=== PATIENT | male | born 1935 | race Caucasian/White ===

== ENCOUNTER 2016-12-01 09:55 | Observation (INO) | payer OTHER ==
--- NOTE | 2016-12-01 00:24 | SOAPPROG ---
SOAP Progress Note Assessment/Plan: Assessment: Plan: H&P Dict. # [id number] ICD10 Worksheet Patient Problems: Problems Problem Status Onset Bacteremia due to Gram-negative bacteria Acute Septic shock Acute Severe sepsis without septic shock Acute UTI (urinary tract infection) Acute
--- NOTE | 2016-12-01 00:47 | GHP ---
[f rep st] PREOP HISTORY AND PHYSICAL DATE OF ADMISSION: 12/01/2016 CHIEF COMPLAINT: Large bladder tumor. HISTORY: This is an 81-year-old gentleman, who has had recent gross hematuria. Evaluation included cystoscopy and CT urogram. Cystoscopy revealed a sizable bladder tumor measuring approximately 5 c m in diameter along the left side of the trigone and was obscuring ureteral orifice visualization on that side. CT urogram recently performed revealed [id number] left hydronephrosis and hydrour eter down to the ureterovesical junction, where there appeared to be a prominent intraluminal bladde r mass. Unable to assess the lumen of the lower two thirds in the left ureter due to lack of contra st opacification. PAST MEDICAL HISTORY: Notable for atrial fibrillation, cerebrovascular accident in March 2015, d epression, type 1 diabetes, gastric reflux, glaucoma, gout, high blood pressure, arthritis, peripher al neuropathy, history of polymyalgia rheumatica, rheumatoid arthritis. PAST SURGICAL HISTORY: Includes appendectomy, 3-vessel coronary bypass grafting in June 1997, r ight epididymectomy in 1967, cholecystectomy in 1962, double inguinal hernia repair in 1935, right k nee replacement in 2009, C5-6 and the C6-7 fusion in January 2001, L3 through L5 surgery in August 2008. ADMISSION MEDICATIONS: Include tamsulosin 0.4 mg daily, simvastatin 20 mg daily, Tylenol 325 mg 2 t ablets at bedtime, ranitidine 150 mg daily, metoprolol 25 mg daily, methotrexate 2.5 mg once weekly, Lantus subcutaneous insulin, Humalog insulin, Flonase once daily, baby aspirin. MEDICAL ALLERGIES: None known. FAMILY HISTORY: Noncontributory. SOCIAL HISTORY: The patient is and lives in the [facility]. He denies use of tobacco. No alcohol products. PHYSICAL EXAMINATION: GENERAL: Elderly white male, in no acute distress. VITAL SIGNS: Refer to a dmission nursing homes. Height 5 feet 9 inches, weight 213 pounds, BMI 31.4. HEENT: Nonfocal. HE ART: Regular rate. CHEST: Unlabored respiratory pattern. GENITALIA: Normal phallus and scrotal structures. IMPRESSION: Large bladder neoplasm with moderate left hydronephrosis and hydroureter. PLAN: The patient will undergo intraoperative transurethral bladder tumor resection with possible l eft ureteroscopy and ureteral stent placement on 12/01/2016. /[id number]/MODL
[2016-12-01] MEDS ORDERED: levOFLOXACIN 500 MG/DEXTROSE 100 ML IV ONE (10:18)
[2016-12-01] MEDS ORDERED: LR 1,000 ML IV ONE (10:19)
[2016-12-01] MEDS ORDERED: LIDOCAINE 1% 2 ML INJ ID PRN (10:19)
--- NOTE | 2016-12-01 10:36 | POSTOPPROG ---
Post Op Note Date of Operation: 12/01/16 Surgeon: Lynn Lema (# [id number]) Anesthesia: GET(General Endotracheal) Pre-op Diagnosis: Large bladder tumor, left hydroureteronephrosis Post-op Diagnosis: Large bladder tumor, left hydroureteronephrosis, distal left ureteral obstr Procedure: TURBT, left RGP & ureteral stent placement Findings: See op note Inf/Abcess present in the surg proc area at time of surgery?: No EBL: Minimal Complications: None Drains: Other (6 Fr. x 24 cm left ureteral stent) Specimen(s): Bladder tumor Text Box - Additional Text Additional Text: He will be admitted overnight for CBI
[2016-12-01] MEDS ORDERED: CITRIC ACID/SODIUM CITRATE 30 ML UDCUP PO ONE (11:26)
--- NOTE | 2016-12-01 11:57 | PDHPUP ---
History & Physical Update H&P update statement: This history and physical update is based on an assessment of the patient which was completed after admission or registration (within 24 hours), but prior to the surgery/procedure. H&P update: no change in patient's condition since H&P completed
[2016-12-01] MEDS ORDERED: LIDOCAINE 2% JELLY 20 ML (UROJECT) ONE (12:07)
[2016-12-01] MEDS ORDERED: IOPAMIDOL (ISOVUE-M 300) 15 ML VIAL ONE (12:07)
[2016-12-01] MEDS ORDERED: fentaNYL 100 MCG/2 ML INJ ONE (12:14)
[2016-12-01] MEDS ORDERED: MIDAZOLAM 2 MG/2 ML VIAL ONE (12:15)
[2016-12-01] MEDS ORDERED: SUCCINYLCHOLINE CHLORIDE*ANESTHESIA ONLY*200 MG/10 ML SYR IVP ONE (12:40)
[2016-12-01] MEDS ORDERED: ROCURONIUM 50 MG/5 ML VIAL ONE (12:40)
[2016-12-01] MEDS ORDERED: LABETALOL HCL 50 MG/10 ML SYR IVP PRN (12:57)
[2016-12-01] MEDS ORDERED: MEPERIDINE 25 MG/ML SYR IVP PRN (12:57)
[2016-12-01] MEDS ORDERED: HYDROmorphONE/DILAUDID 1 MG/ML SYR IVP PRN (12:57)
[2016-12-01] MEDS ORDERED: METOCLOPRAMIDE 10 MG/2 ML VIAL IVP PRN (12:57)
[2016-12-01] MEDS ORDERED: fentaNYL 100 MCG/2 ML INJ IVP PRN (12:57)
[2016-12-01] MEDS ORDERED: NALOXONE HCL 0.4 MG/ML INJ IVP PRN (12:57)
[2016-12-01] MEDS ORDERED: ONDANSETRON 4 MG/2 ML VIAL IVP PRN ×2 (12:57→14:10)
--- NOTE | 2016-12-01 13:09 | PDANEPAE ---
ANE Past Medical History - Cardiovascular History Hx Hypertension: Yes Hx Arrhythmias: Yes Hx Chest Pain: No Hx Coronary Artery / Peripheral Vascular Disease: Yes Hx CHF / Valvular Disease: No Hx Palpitations: No Cardiovascular History Comment: INTERMITTENT ATRIAL FIBRILLATION. WORSE WITH STRESS. STENT 2013 - Pulmonary History Hx COPD: No Hx Asthma/Reactive Airway Disease: No Hx Recent Upper Respiratory Infection: No Hx Oxygen in Use at Home: No Hx Sleep Apnea: No Sleep Apnea Screening Result - Last Documented: Positive - Neurologic History Hx Cerebrovascular Accident: Yes Hx Seizures: No Hx Dementia: No Neurologic History Comment: TIA 2014 - Endocrine History Hx Diabetes: Yes Endocrine History Comment: IDDM - Renal History Hx Renal Disorders: Yes Renal History Comment: HX UTI'S. RENAL CYSTS. SEPSIS/BACTERMIA/HEMATURIA 2016 - Liver History Hx Hepatic Disorders: No Hepatic History Comment: CASPER - Neurological & Psychiatric Hx Hx Neurological and Psychiatric Disorders: No - Cancer History Hx Cancer: Yes Cancer History Comment: SKIN - Congenital Disorder History Hx Congenital Disorders: No - GI History GERD: mild Hx Gastrointestinal Disorders: Yes Gastrointestinal History Comment: GERD. HX OF COLON POLYPS - Other Health History Other Health History: RHEUMATOID ARTHRITIS. POLIO DURING CHILDHOOD NO RESIDUAL EFFECTS - Chronic Pain History Chronic Pain: No - Surgical History Prior Surgeries: BILATERAL CATARACT/GLAUCONMA 2005. MOHS PROCEDURE NASAL. RT TOTAL KNEE. LUMBAR LAMINECTOMY X2. CERVICAL LAMINECTOMY. CABG X3 1997. RT ANKLE X2. REMVL RT EPIDIDYMIS /INFECTION. CASPER. T&A. VINAY HERNIA 193 ANE Review of Systems - Exercise capacity METS (RN): 4 METS ANE Patient History - Allergies Allergies/Adverse Reactions: No Known Allergies Allergy (Unverified 11/15/16 10:19) - Home Medications Home Medications: Ascorbic Acid [Vitamin C 500 mg (*)] 500 mg PO DAILY@1800 10/17/13 [Last Taken 11/30/16] Folic Acid [Folic Acid 1 MG (*)] 1 tab PO DAILY@1800 10/17/13 [Last Taken ] Insulin Glargine [Lantus 100 UNITS/ML (*)] 15 units SC HS 10/17/13 [Last Taken 11/30/16] Methotrexate Sodium [Methotrexate] 15 mg PO WE 10/17/13 [Last Taken 11/30/16] Metoprolol Tartrate [Lopressor 25 mg (*)] 12.5 mg PO BID 10/17/13 [Last Taken ] Tamsulosin HCl [Flomax 0.4 MG (*)] 0.4 mg PO DAILY 10/17/13 [Last Taken 10/16/13 ] Acetaminophen [Tylenol ES 500 mg (*)] 500 mg PO DAILY PRN 11/15/16 [Last Taken Unknown] Insulin Lispro [Humalog] 3 - 4 unit SQ TIDMEAL 11/15/16 [Last Taken 12/01/16] Ranitidine HCl [Zantac] 150 mg PO BIDMEAL 11/15/16 [Last Taken 11/30/16] Simvastatin [Zocor] 20 mg PO HS 11/15/16 [Last Taken Unknown] ASPIRIN 81 mg PO DAILY 12/01/16 [Last Taken 11/30/16] Xarelto 20 mg DAILY 12/01/16 [Last Taken 11/07/16] - NPO status NPO Since - Liquids (Date): 12/01/16 NPO Since - Liquids (Time): 21:00 NPO Since - Solids (Date): 12/01/16 NPO Since - Solids (Time): 21:00 - Smoking Hx Smoking Status: Never smoked ANE Labs/Vital Signs - Labs - CBC HCT: 44.5 Platelet Count: 163 - Labs - BMP Creatinine: 1.2 - Vital Signs Blood Pressure: 156/67 Heart Rate: 78 Respiratory Rate: 14 O2 Sat (%): 93 Height: 173.99 cm Weight: 96.615 kg ANE Physical Exam - Airway Neck exam: decreased ROM, spinal fusion Mallampati Score: Class 2 - Pulmonary Pulmonary: no rales or rhonchi, clear to auscultation - Cardiovascular Cardiovascular: regular rate and rhythym - ASA Status ASA Status: III
[2016-12-01] MEDS ORDERED: METHYLENE BLUE 0.5% 50 MG/10 ML AMP ONE (13:14)
[2016-12-01] MEDS ORDERED: ONDANSETRON 4 MG/2 ML VIAL ONE (13:16)
[2016-12-01] MEDS ORDERED: NEOSTIGMINE METHYLSULFATE 5 MG/5 ML SYR ONE (13:19)
[2016-12-01] MEDS ORDERED: GLYCOPYRROLATE 0.2 MG/1 ML VIAL ONE ×2 (13:20)
--- NOTE | 2016-12-01 13:59 | POSTANESTH ---
Post Anesthetic Evaluation Respiratory Status: Normal, Stable Level of Consciousness/Mental Status: Can Participate in Eval, Mildly Sleepy, Arousable Pain Control: Adequate, Prn Tx Ordered Nausea/Vomiting Control: Adequate, Prn Tx Ordered Complications Possibly Related to Anesthesia: None Noted
[2016-12-01] MEDS ORDERED: PROMETHAZINE HCL 25 MG/ML INJ IVP PRN (14:10)
[2016-12-01] MEDS ORDERED: LIDOCAINE 2% JELLY 5 ML TUBE TP PRN (14:10)
--- NOTE | 2016-12-01 14:59 | GOP ---
[f rep st] OPERATIVE REPORT DATE OF OPERATION: 12/01/2016 SURGEON: Lynn Lema MD ANESTHESIA: General endotracheal. PREOPERATIVE DIAGNOSIS: 1. Large bladder tumor, greater than 5 cm. 2. Left hydroureteronephrosis. POSTOPERATIVE DIAGNOSIS: 1. Large bladder tumor, greater than 5 cm. 2. Left hydroureteronephrosis. 3. Distal left ureteral obstruction. PROCEDURES PERFORMED: 1. Transurethral resection of large bladder tumor. 2. Left retrograde pyelography and ureteral stent placement (6-Bangladeshi by 24 cm) . FINDINGS: 1. Large left trigonal and lateral wall bladder tumor that had both papillary and sessile components to it. 2. Left ureteral orifice and distal ureter appeared to be obstructed as result of the tumor; ureteral stent inserted without complication. SPECIMENS: Bladder tumor. ESTIMATED BLOOD LOSS: Minimal. INDICATIONS: This gentleman was recently found to have a large bladder tumor that appeared to be possibly obstructing the left ureteral orifice. He presents for operative management at this time. The indications for the procedures, as well as potential risks and complications, have been discussed with the patient preoperatively. He appeared to understand, his questions were answered, and he wished to proceed. Written informed surgical consent was thereafter obtained. DESCRIPTION OF PROCEDURE: The patient was brought to the operating room and administered general endotracheal anesthesia. He was carefully placed in the dorsal lithotomy position on the cystoscopic table. The genital area was sterilely prepped with Betadine scrub and paint, then draped in usual sterile fashion. Cystoscopy was performed with the 30-degree and 70-degree lenses through a 25-Bangladeshi sheath. Anterior urethra revealed no abnormalities. Posterior urethra revealed mild BPH. Examination of bladder revealed a heavily trabeculated bladder in general. There was a sizable tumor along the left trigone and extending onto the left lateral wall which included a sessile component that involved the left side of the trigone, as well as a papillary component extending lateral to that. The right ureteral orifice was normal in regard to shape and position along the trigone. I then inserted the 24-Bangladeshi [employer] resectoscope with a standard resecting loop. Using normal saline, I resected the tumor to completion. Muscularis propria was obtained in the sample grossly. All the tumor fragments were evacuated from the bladder through the resectoscope as well as utilizing an [employer] evacuator. A button electrode was then used to fulgurate the surface of the resected bladder for hemostasis as well as for local tumor control purposes. I then carefully inspected the region of the left trigone and was ultimately able to identify an area that appeared to be suggestive for the left ureter. I used a 5-Bangladeshi open-ended ureteral catheter and a 0.035-inch hydrophilic guidewire through the cystoscope and was able to intubate this opening, that was confirmed to be the left ureter. I injected contrast to perform retrograde pyelography which revealed a [id number] distal hydroureter. The remainder of the ureter and the renal collecting system were normal. I then passed a 0.035-inch hydrophilic guidewire up the left ureter until it was seen within the renal collecting system fluoroscopically. A 6-Bangladeshi by 24 cm hydrophilic ureteral stent was advanced over the guidewire until it was properly positioned as seen fluoroscopically in the kidney and cystoscopically in the bladder. The bladder was then drained of all return which was clear. At the conclusion of procedure, all abnormal bladder tissue had been resected and evacuated from the bladder, the bladder was hemostatic, and no gross perforation of the bladder wall had ensued as a result of the operative process. The instruments were removed, and a 20-Bangladeshi 3-way Cantor catheter inserted. Continuous irrigation was started, and the catheter irrigated manually at the end of the case without difficulty. The return was clear. The patient's catheter was connected to bag drainage. He was awakened, extubated, transferred to his bed, and then taken to the recovery room. He tolerated the procedure well overall. COMPLICATIONS: None. DISPOSITION: He was transferred to the recovery room in stable condition and will be admitted overnight for continuous bladder irrigation. /[id number]/MODL MTDD
[2016-12-01] MEDS ORDERED: D50W 25 GM/50 ML SYR IVP PRN (16:03)
[2016-12-01] MEDS ORDERED: PARAMETERS MISC PRN (16:03)
[2016-12-01] MEDS: FAMOTIDINE 20 MG TAB PO SCH (16:38)
[2016-12-01] MEDS: INSULIN LISPRO 100 UNIT/ML SC SCH (17:24)
[2016-12-01] MEDS ORDERED: NON-FORMULARY NEW DRUG (Insulin Lispro [Humalog] 0 UNIT) SQ SCH (18:00)
[2016-12-01] MEDS ORDERED: NON-FORMULARY NEW DRUG (Ranitidine Hcl [Zantac] 150 MG) PO SCH (18:00)
[2016-12-01] MEDS: METOPROLOL TARTRATE 25 MG TAB PO SCH (19:35)
[2016-12-01] MEDS: HYDROCODONE/APAP 5/325 TAB PO PRN ×2 (19:39→21:07)
[2016-12-01] MEDS ORDERED: ATORVASTATIN CALCIUM 10 MG TAB PO SCH (21:00)
[2016-12-01] MEDS ORDERED: NON-FORMULARY NEW DRUG (Simvastatin [Zocor] 20 MG) PO SCH (21:00)
[2016-12-01] MEDS ORDERED: INSULIN GLARGINE 100 UNITS/ML SYRINGE SC SCH (21:00)
[2016-12-01] MEDS: OPIUM/BELLADONNA ALKALO SUPP PR PRN (21:13)
[2016-12-01] MEDS: HYDROmorphONE/DILAUDID 1 MG/ML SYR IVP PRN (21:50)
[2016-12-02] MEDS: HYDROmorphONE/DILAUDID 1 MG/ML SYR IVP PRN ×2 (01:24→04:44)
[2016-12-02] MEDS: OPIUM/BELLADONNA ALKALO SUPP PR PRN ×2 (04:44→11:23)
[2016-12-02] MEDS: FAMOTIDINE 20 MG TAB PO SCH (08:54)
[2016-12-02] MEDS: METOPROLOL TARTRATE 25 MG TAB PO SCH (08:54)
[2016-12-02] MEDS ORDERED: TAMSULOSIN HCL 0.4 MG CAP PO SCH (09:00)
[2016-12-02] MEDS: INSULIN LISPRO 100 UNIT/ML SC SCH ×2 (09:03→12:49)
[2016-12-02] MEDS: HYDROCODONE/APAP 5/325 TAB PO PRN ×2 (11:22→17:46)
--- NOTE | 2016-12-02 15:45 | SOAPPROG ---
SOAP Progress Note Assessment/Plan: Assessment: POD 1 s/p TURBT - doing well. Plan: Discharge w/ Cantor. FU next Mon. for Cantor removal. Dict. # [id number] Subjective: No complaints. Had pain earlier this AM which was controlled with meds, no significant pain since. Objective: Vital Signs Temp Pulse Resp BP Pulse Ox 36.4 C 63 16 106/65 98 12/02/16 11:13 12/02/16 11:13 12/02/16 11:13 12/02/16 11:13 12/02/16 11:13 12/01/16 12/02/16 12/03/16 05:59 05:59 05:59 Intake Total 1750 1000 Output Total 4300 1275 Balance -2550 -275 Physical Exam - Physical Exam General Appearance: WD/WN, alert, no apparent distress Abdomen: non-tender, soft Male Genitalia: other (urine pink-tinged off CBI) Skin: normal color, warm/dry Extremities: non-tender Neuro/Psych: alert, normal mood/affect, oriented x 3 ICD10 Worksheet Patient Problems: Problems Problem Status Onset Bacteremia due to Gram-negative bacteria Acute Septic shock Acute Severe sepsis without septic shock Acute UTI (urinary tract infection) Acute
[2016-12-02 16:30] VITALS: PULSE 71; RESP 18; TEMP 98.3; O2SAT 92
--- NOTE | 2016-12-02 16:37 | GDS ---
[f rep st] DISCHARGE SUMMARY ADMITTING DIAGNOSIS: Large bladder tumor with left hydronephrosis. DISCHARGE DIAGNOSIS: Large bladder tumor with left hydronephrosis. PROCEDURE: Transurethral resection of bladder tumor and left ureteral stent placement on 12/01/2016 . HOSPITAL COURSE: Refer to the operative report for details regarding the procedure. Postoperativel y, patient was admitted for continuous irrigation. He had a reasonable amount of suprapubic pain an d bladder spasms postoperatively which had diminished by the afternoon of postoperative day 1. He w as doing well by this point, was tolerating regular diet, and ambulating without difficulty. He was ready for discharge with his Cantor catheter in place on the afternoon of postoperative day 1. His urine color was also progressively clearing and was light to medium pink following discontinuation o f continuous bladder irrigation. The patient is being discharged on a carb controlled diet as well as his regular medications (with t he exception of aspirin, Xarelto, and Plavix, which all he will resume on 12/07). Activity restrict ion instructions were provided. He will use [place] 5 mg p.r.n. pain. He will follow up in my office next Monday for Cantor removal, then return for further pathology consultation/discussion as richard you. /[id number]/MODL
[2016-12-02 17:50] VITALS: BP 124/57
[2016-12-07] MEDS ORDERED: METHOTREXATE 2.5 MG TAB PO SCH (14:10)
== END 2016-12-02 18:43 | disposition home or self-care (01) ==
LOC: F1N 09:55
PROVIDERS: ADMIT Specialist; ATTEND Specialist
PROC: 0T778DZ Dilation of Left Ureter with Intraluminal Device, Via Natural or Artificial Opening Endoscopic (ICD-10-PCS; principal; 2016-12-01 11:45)
PROC: BT141ZZ Fluoroscopy of Kidneys, Ureters and Bladder using Low Osmolar Contrast (ICD-10-PCS; principal; 2016-12-01 11:45)
PROC: 0TBB8ZZ Excision of Bladder, Via Natural or Artificial Opening Endoscopic (ICD-10-PCS; principal; 2016-12-01 11:45)
DX: C67.8 Malignant neoplasm of overlapping sites of bladder (principal); N13.1 Hydronephrosis with ureteral stricture, not elsewhere classified; R31.0 Gross hematuria; R35.1 Nocturia; I48.91 Unspecified atrial fibrillation; E10.42 Type 1 diabetes mellitus with diabetic polyneuropathy; K21.9 Gastro-esophageal reflux disease without esophagitis; F32.9 Major depressive disorder, single episode, unspecified; Z86.73 Personal history of transient ischemic attack (TIA), and cerebral infarction without residual deficits; Z95.1 Presence of aortocoronary bypass graft; Z96.651 Presence of right artificial knee joint
CPT/HCPCS: 52240; 52332; 76001; C2625; G0378; J0330; J1170; J1815; J1956; J2250; J2405; J2550; J2710; J3010; Q9967; Q9968

== ENCOUNTER → 2017-09-07 | Day surgery (SDC) | payer OTHER ==
[~2017-09-07] MED LIST: ACETAMINOPHEN 500 MG TAB PO PRN; ENALAPRILAT DIHYDRATE 1.25 MG/ML VIAL IVP PRN; HYDROCODONE/APAP 5/325 TAB PO PRN; IOPAMIDOL (ISOVUE-M 300) 15 ML VIAL ONE; LIDOCAINE 2% 5 ML SDV ONE; LIDOCAINE 2% JELLY 5 ML TUBE ONE; LR 1,000 ML IV ONE; LR 500 ML IV PRN; NALOXONE HCL 0.4 MG/ML INJ IVP PRN; ONDANSETRON 4 MG/2 ML VIAL IVP PRN; ONDANSETRON 4 MG/2 ML VIAL ONE; PROMETHAZINE HCL 25 MG/ML INJ IVP PRN; PROPOFOL 200 MG/20 ML VIAL ONE; fentaNYL 100 MCG/2 ML INJ IVP PRN; fentaNYL 100 MCG/2 ML INJ ONE; levOFLOXACIN 500 MG/DEXTROSE 100 ML IV ONE
--- NOTE | 2017-09-07 11:53 | PDANEPAE ---
ANE Past Medical History - Cardiovascular History Hx Hypertension: Yes Hx Arrhythmias: Yes Hx Chest Pain: No Hx Coronary Artery / Peripheral Vascular Disease: Yes Hx CHF / Valvular Disease: No Hx Palpitations: No Cardiovascular History Comment: OCCAS EPISODES ATRIAL FIB. WORSE WITH STRESS. STENT 2013 - Pulmonary History Hx COPD: No Hx Asthma/Reactive Airway Disease: No Hx Recent Upper Respiratory Infection: No Hx Oxygen in Use at Home: No Hx Sleep Apnea: No Sleep Apnea Screening Result - Last Documented: Positive Pulmonary History Comment: SOME SIGNS OF EMPHYSEMA NOTED IN NOVEMBER 2016 - Neurologic History Hx Cerebrovascular Accident: Yes Hx Seizures: No Hx Dementia: No Neurologic History Comment: TIA 2014 - Endocrine History Hx Diabetes: Yes Obesity: mild Endocrine History Comment: DM II - Renal History Hx Renal Disorders: Yes Renal History Comment: TUMOR BLADDER - Liver History Hx Hepatic Disorders: No Hepatic History Comment: CASPER - Neurological & Psychiatric Hx Hx Neurological and Psychiatric Disorders: No - Cancer History Hx Cancer: Yes Cancer History Comment: SKIN. BLADDER TUMOR. BCG TXS FOLLOWING SURG - Congenital Disorder History Hx Congenital Disorders: No - GI History GERD: mild Hx Gastrointestinal Disorders: Yes Gastrointestinal History Comment: ACID REFLUX. HX OF COLON POLYPS - Other Health History Other Health History: RHEUMATOID ARTHRITIS. POLIO DURING CHILDHOOD NO RESIDUAL EFFECTS - Chronic Pain History Chronic Pain: No - Surgical History Prior Surgeries: 11/2016 TUR BLADDER TUMOR. BILATERAL CATARACT/GLAUCONMA 2004. MOHS PROCEDURE NASAL. RT TOTAL KNEE. LUMBAR LAMINECTOMY X2. CERVICAL LAMINECTOMY. CABG X3 1998. RT ANKLE X2. REMVL RT EPIDIDYMIS /INFECTION. CASPER. T&A. VINAY HERNIA 193 ANE Review of Systems Review of Systems: - Exercise capacity METS (RN): 4 METS ANE Patient History - Allergies Allergies/Adverse Reactions: No Known Allergies Allergy (Unverified 11/15/16 10:19) - Home Medications Home Medications: Ascorbic Acid [Vitamin C 500 mg (*)] 500 mg PO DAILY18 10/17/13 [Last Taken 1 Week Ago ~08/31/17] Folic Acid [Folic Acid 1 MG (*)] 1 tab PO DAILY18 10/17/13 [Last Taken 1 Week Ago ~08/31/17] Insulin Glargine [Lantus 100 UNITS/ML (*)] 18 units SC HS 10/17/13 [Last Taken 09/06/17] Metoprolol Tartrate [Lopressor 25 mg (*)] 12.5 mg PO BIDMEAL 10/17/13 [Last Taken 09/06/17] Tamsulosin HCl [Flomax 0.4 MG (*)] 0.4 mg PO DAILY 10/17/13 [Last Taken 09/06/17 ] Ranitidine HCl [Zantac] 150 mg PO BIDMEAL 11/15/16 [Last Taken 09/06/17] Simvastatin [Zocor] 20 mg PO HS 11/15/16 [Last Taken 09/06/17] Aspirin [Aspirin 81mg (*)] 81 mg PO DAILY 08/24/17 [Last Taken 1 Week Ago ~08/31] Clopidogrel Bisulfate [Plavix (*)] 75 mg PO DAILY 08/24/17 [Last Taken 2 Weeks Ago ~08/24/17] Insulin Lispro [humALOG LISPRO 100 units/ml (*)] 3 unit SC TIDMEAL 08/24/17 [ Last Taken Unknown] Ketorolac 0.5% [Acular 0.5% Opht Drops (*)] 1 drops RTEYE QID 08/24/17 [Last Taken 09/06/17] Methotrexate Sodium [Rheumatrex 2.5 mg (RX)] 15 mg PO WE 08/28/17 [Last Taken ] - NPO status NPO Since - Liquids (Date): 09/06/17 NPO Since - Liquids (Time): 08:30 NPO Since - Solids (Date): 09/06/17 NPO Since - Solids (Time): 20:00 - Anes Hx Anes Hx: no prior problems - Smoking Hx Smoking Status: Never smoked - Family Anes Hx Family Hx Anesthesia Complications: NEG ANE Labs/Vital Signs - Vital Signs Blood Pressure: 165/91 Heart Rate: 79 Respiratory Rate: 18 O2 Sat (%): 95 Height: 172.72 cm Weight: 90.718 kg ANE Physical Exam - Airway Neck exam: FROM Mallampati Score: Class 2 Mouth exam: normal dental/mouth exam - Pulmonary Pulmonary: no respiratory distress, no rales or rhonchi, clear to auscultation - Cardiovascular Cardiovascular: regular rate and rhythym, no murmur, rub, or gallop - ASA Status ASA Status: III ANE Anesthesia Plan Anesthesia Plan: GA w LMA
--- NOTE | 2017-09-07 13:33 | POSTOPPROG ---
Post Op Note Date of Operation: 09/07/17 Surgeon: Lynn Lema (# [id number]) Anesthesia: GET(General Endotracheal) Pre-op Diagnosis: Recurrent bladder tumor Post-op Diagnosis: Recurrent bladder tumor Procedure: TURBT, left RGP, left ureteroscopy, left ureteral stent (4.8 Fr. multi) Findings: See op note Inf/Abcess present in the surg proc area at time of surgery?: No EBL: Minimal Complications: None Drains: Other (4.8 Fr. left ureteral stent) Specimen(s): Bladder tumor
--- NOTE | 2017-09-07 13:38 | POSTANESTH ---
Post Anesthetic Evaluation Cardiovascular Status: Normal, Stable, Similar to Pre-Op Cond Respiratory Status: Normal, Stable, Similar to Pre-op Cond. Level of Consciousness/Mental Status: Can Participate in Eval, Alert and Oriented Pain Control: Adequate, Prn Tx Ordered Nausea/Vomiting Control: Adequate, Prn Tx Ordered Complications Possibly Related to Anesthesia: None Noted
--- NOTE | 2017-09-07 14:21 | GOP ---
[f rep st] OPERATIVE REPORT DATE OF OPERATION: 09/07/2017 SURGEON: Lynn Lema MD ANESTHESIA: General endotracheal. PREOPERATIVE DIAGNOSIS: Recurrent bladder tumor with history of bladder cancer. POSTOPERATIVE DIAGNOSIS: Approximately 2 cm recurrent bladder tumor with history of bladder cancer. PROCEDURE PERFORMED: 1. Transurethral resection of 2 cm bladder tumor. 2. Left retrograde pyelography. 3. Left diagnostic ureteroscopy. 4. Left ureteral stent placement (4.8-Indian multilength). FINDINGS: Recurrent bladder tumor surrounding the most distal aspect of the left ureter and ureteral orifice. No other ureteral mucosal abnormalities appreciated. SPECIMENS: Bladder tumor. ESTIMATED BLOOD LOSS: Minimal. INDICATIONS: This gentleman was recently noted to have a recurrent bladder tumor on surveillance cystoscopy in the office. It was recommended that he undergo intraoperative management. The indications for the procedures as well as potential risks and complications were discussed with the patient preoperatively. He appeared to understand, his questions were answered, and he wished to proceed. Written informed surgical consent was thereafter obtained. DESCRIPTION OF PROCEDURE: The patient was brought to the operating room and administered general endotracheal anesthesia. He was carefully placed in the dorsal lithotomy position on the cystoscopic table. The genital area was sterilely prepped with Betadine scrub and paint, then draped in usual sterile fashion. Cystoscopy was performed with the 30-degree and 70-degree lenses through a 22-Indian sheath. Anterior urethra revealed no abnormalities. Posterior urethra revealed mild BPH. Examination of bladder revealed a heavily trabeculated mucosal pattern with a few shallow diverticula. The right ureteral orifice was normal in regards to shape and position along the trigone. The left ureteral orifice was laterally displaced as a result of prior operative resection. There was a tumor circumferentially surrounding the left ureteral orifice. With evagination of the distal ureteral mucosa, the tumor became more apparent and more prominent. No other areas of abnormal erythema, tumors, or foreign bodies were appreciated. I then inserted the 24-Indian resectoscopic sheath with the laser resectoscope and a 30-degree lens. Using a standard resection loop, I then resected the tumor as thoroughly as possible. I resected practically the entire intramural portion of the left ureter. I was able to resect as fully as necessary with the ureter intermittently evaginating into the bladder. After all visible tumor had been fully resected, I decided to proceed with left ureteroscopy. I reinserted the cystoscope and advanced a 0.035 inch hydrophilic guidewire up the right ureter with the aid of a 5-Indian open-ended ureteral catheter. The ureteral catheter was then used to perform retrograde pyelography on the left side. This revealed moderate hydronephrosis and hydroureter diffusely without any obvious filling defects appreciated. I then removed the 5-Indian open- ended ureteral catheter after reinserting the guidewire into the renal collecting system. The cystoscope was removed while keeping the guidewire in place. Semi-rigid ureteroscopy was performed alongside the guidewire. The ureteroscope was advanced into the mid aspect of the left ureter. No mucosal abnormalities were appreciated. There was diffuse dilation but otherwise, no other abnormalities appreciated. The ureteroscope was removed and the cystoscope was reinserted over the guidewire. A 4.8-Indian Multi-Link hydrophilic ureteral stent was advanced over the guidewire until it was properly positioned and seen fluoroscopically in the kidney and cystoscopically in the bladder. I then removed the cystoscope and reinserted the resectoscope, this time with a button electrode. The button was used to thoroughly fulgurate the area where the biopsies were taken and the surrounding tissue, both for local tumor control purposes and hemostasis. At the conclusion of the operation, the bladder was completely hemostatic. All the specimen pieces were removed from the bladder via the resectoscope. There was no overt perforation of the bladder wall as a result of the operative process. The instruments were removed and an 18-Indian Cantor catheter placed to gravity drainage. The urine return was completely clear. Approximately 10 cc of sterile fluid was placed in the balloon. The catheter was connected to bag drainage. The patient was awakened, extubated, transferred to his bed, then taken to recovery room. He tolerated the procedure well overall. COMPLICATIONS: None. DISPOSITION: He was transferred to the recovery room in stable condition, and will be discharged with instructions to remove the Cantor catheter on Monday, then return to my office for further postoperative consultation in approximately 2 weeks (as already scheduled). /[id number]/MODL MTDD
[2017-09-07 14:41] VITALS: BP 157/88
== END | disposition home or self-care (01) ==
LOC: FSGY 10:14 → F1N 10:14 → UNDOADMOB 10:14 → EDSTATUS 12:00 → UNDODISOB 15:20
PROVIDERS: ATTEND Specialist
DX: C67.6 Malignant neoplasm of ureteric orifice (principal); I63.9 Cerebral infarction, unspecified; E10.59 Type 1 diabetes mellitus with other circulatory complications; Z85.828 Personal history of other malignant neoplasm of skin; Z85.51 Personal history of malignant neoplasm of bladder; Z95.5 Presence of coronary angioplasty implant and graft; Z79.4 Long term (current) use of insulin
CPT/HCPCS: 52235; 52332; 76001; C1758; C1769; C2625; J1956; J2405; J2704; J3010; Q9967

== ENCOUNTER → 2017-10-16 | Outpatient (CLI) | payer OTHER | LOC: FIMAGING 13:52 | PROVIDERS: ATTEND Specialist | DX: Z09 Encounter for follow-up examination after completed treatment for conditions other than malignant neoplasm (principal); Z96.0 Presence of urogenital implants ==

== ENCOUNTER 2017-10-26 07:38 | Day surgery (SDC) | payer OTHER ==
[2017-10-26] MEDS ORDERED: levOFLOXACIN 500 MG/DEXTROSE 100 ML IV ONE (07:56)
[2017-10-26] MEDS ORDERED: LR 1,000 ML IV ONE (07:57)
[2017-10-26] MEDS ORDERED: IOPAMIDOL (ISOVUE-M 300) 15 ML VIAL ONE (08:16)
[2017-10-26] MEDS ORDERED: LIDOCAINE 2% JELLY 20 ML (UROJECT) ONE (08:16)
[2017-10-26] MEDS ORDERED: MIDAZOLAM 2 MG/2 ML VIAL IVP ONE (09:41)
--- NOTE | 2017-10-26 09:43 | PDANEPAE ---
ANE History of Present Illness stent in urerther ANE Past Medical History - Cardiovascular History Hx Hypertension: Yes Hx Arrhythmias: Yes Hx Chest Pain: No Hx Coronary Artery / Peripheral Vascular Disease: Yes Hx CHF / Valvular Disease: No Hx Palpitations: No Cardiovascular History Comment: AFIB. CAD STENT 2013. CABG 3V 1997. HYPERLIPIDEMIA - Pulmonary History Hx COPD: No Hx Asthma/Reactive Airway Disease: No Hx Recent Upper Respiratory Infection: No Hx Oxygen in Use at Home: No Hx Sleep Apnea: No Sleep Apnea Screening Result - Last Documented: Positive Pulmonary History Comment: SOME SIGNS OF EMPHYSEMA NOTED IN NOVEMBER 2016. 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 HX OF LAMI. PERIPHERAL NEUROPATHY - Endocrine History Hx Diabetes: Yes Endocrine History Comment: DM II - Renal History Hx Renal Disorders: Yes Renal History Comment: BLADDER CA. TURBT 11/2016 AND 09/07/17. HAVING TROUBLE WITH STENT CURRENTLY FROM August. BPH - Liver History Hx Hepatic Disorders: No Hepatic History Comment: CASPER - Neurological & Psychiatric Hx Hx Neurological and Psychiatric Disorders: No Neurological / Psychiatric History Comment: HX OF DEPRESSION - Cancer History Hx Cancer: Yes Cancer History Comment: SKIN. BLADDER TUMOR - Congenital Disorder History Hx Congenital Disorders: No - GI History Hx Gastrointestinal Disorders: Yes Gastrointestinal History Comment: ACID REFLUX. HX OF COLON POLYPS - Other Health History Other Health History: RHEUMATOID ARTHRITIS. POLIO DURING CHILDHOOD NO RESIDUAL EFFECTS. WEARS GLASSES - Chronic Pain History Chronic Pain: No - Surgical History Prior Surgeries: 09/07/17 TURBT, URETEROSCOPY AND STENT PLACED WITH MELOUK. 12/01 TUR BLADDER TUMOR WITH MELOUK. BILATERAL CATARACT/GLAUCONMA 2004. MOHS PROCEDURE NASAL. RT TOTAL KNEE. LUMBAR LAMINECTOMY X2. CERVICAL LAMINECTOMY. CABG X3 1997. RT ANKLE X2. REMVL RT EPIDIDYMIS /INFECTION. CASPER. T&A. VINAY HERNIA 1936 ANE Review of Systems Review of Systems: - Exercise capacity METS (RN): 4 METS ANE Patient History - Allergies Allergies/Adverse Reactions: No Known Allergies Allergy (Verified 10/20/17 11:39) - Home Medications Home Medications: Ascorbic Acid [Vitamin C 500 mg (*)] DAILY18 10/17/13 [Last Taken 10/25/17] Folic Acid [Folic Acid 1 MG (*)] DAILY18 10/17/13 [Last Taken 10/25/17] Insulin Glargine [Lantus 100 UNITS/ML (*)] 18 units SC HS 10/17/13 [Last Taken 10/25/17 20 units] Metoprolol Tartrate [Lopressor 25 mg (*)] BIDMEAL 10/17/13 [Last Taken 10/26/17] Tamsulosin HCl [Flomax 0.4 MG (*)] DAILY 10/17/13 [Last Taken 10/26/17] Ranitidine HCl [Zantac] BIDMEAL 11/15/16 [Last Taken 10/26/17] Simvastatin [Zocor] HS 11/15/16 [Last Taken 10/26/17] Aspirin [Aspirin 81mg (*)] DAILY 08/24/17 [Last Taken 10/25/17] Insulin Lispro [humALOG LISPRO 100 units/ml (*)] 3 unit SC TIDMEAL 08/24/17 [ Last Taken 10/25/17] Ketorolac 0.5% [Acular 0.5% Opht Drops (*)] RTEYE QID 08/24/17 [Last Taken 10/26] Methotrexate Sodium [Rheumatrex] WE 08/28/17 [Last Taken 10/26/17] Clopidogrel Bisulfate 10/20/17 [Last Taken 10/19/17] - NPO status NPO Since - Liquids (Date): 10/26/17 NPO Since - Liquids (Time): 06:00 NPO Since - Solids (Date): 10/25/17 NPO Since - Solids (Time): 19:00 - Smoking Hx Smoking Status: Never smoked - Family Anes Hx Family Hx Anesthesia Complications: NONE ANE Labs/Vital Signs - Vital Signs Blood Pressure: 164/69 Heart Rate: 69 Respiratory Rate: 16 O2 Sat (%): 95 Height: 172.72 cm Weight: 90.718 kg ANE Physical Exam - Airway Neck exam: FROM Mallampati Score: Class 2 Mouth exam: normal dental/mouth exam - Pulmonary Pulmonary: no respiratory distress - Cardiovascular Cardiovascular: regular rate and rhythym - ASA Status ASA Status: III ANE Anesthesia Plan Anesthesia Plan: GA w LMA
[2017-10-26] MEDS ORDERED: PROPOFOL 200 MG/20 ML VIAL ONE (09:58)
[2017-10-26] MEDS ORDERED: fentaNYL 100 MCG/2 ML INJ ONE (09:58)
[2017-10-26] MEDS ORDERED: DEXAMETHASONE 4 MG/ML VIAL ONE (10:38)
[2017-10-26] MEDS ORDERED: ONDANSETRON 4 MG/2 ML VIAL ONE (10:38)
[2017-10-26] MEDS ORDERED: ePHEDrine SULFATE 25 MG/5 ML SYR ONE (10:39)
[2017-10-26] MEDS ORDERED: PHENYLEPHRINE HCL 100 MCG/ML SYR ONE (10:39)
[2017-10-26] MEDS ORDERED: fentaNYL 100 MCG/2 ML INJ IVP PRN (10:55)
[2017-10-26] MEDS ORDERED: NALOXONE HCL 0.4 MG/ML INJ IVP PRN (10:55)
[2017-10-26] MEDS ORDERED: HYDROCODONE/APAP 5/325 TAB PO PRN (10:55)
[2017-10-26] MEDS ORDERED: ONDANSETRON 4 MG/2 ML VIAL IVP PRN (10:55)
[2017-10-26] MEDS ORDERED: HYDROmorphONE/DILAUDID 2 MG/ML INJ IVP PRN (10:55)
[2017-10-26] MEDS ORDERED: PROMETHAZINE HCL 25 MG/ML INJ IVP PRN (10:55)
--- NOTE | 2017-10-26 11:05 | POSTOPPROG ---
Post Op Note Date of Operation: 10/26/17 Surgeon: Lynn Lema (# [id number]) Anesthesia: LMA Pre-op Diagnosis: Bladder cancer, left ureteral stent displacement Post-op Diagnosis: Bladder cancer, left ureteral stent displacement Procedure: Left ureteroscopy w/ stent removal & replacement Findings: See op note Inf/Abcess present in the surg proc area at time of surgery?: No EBL: Minimal Complications: None Drains: Other (4.7 Fr. variable length left ureteral stent) Specimen(s): None
--- NOTE | 2017-10-26 11:07 | POSTANESTH ---
Post Anesthetic Evaluation Cardiovascular Status: Normal, Stable Respiratory Status: Normal, Stable Level of Consciousness/Mental Status: Can Participate in Eval Pain Control: Adequate, Prn Tx Ordered Nausea/Vomiting Control: Adequate, Prn Tx Ordered Complications Possibly Related to Anesthesia: None Noted
[2017-10-26] MEDS ORDERED: PHENAZOPYRIDINE HCL 200 MG TAB ONE (11:27)
[2017-10-26 11:33] VITALS: BP 132/66
[2017-10-26] MEDS ORDERED: PHENAZOPYRIDINE HCL 200 MG TAB PO ONE (11:45)
--- NOTE | 2017-10-26 11:51 | GOP ---
[f rep st] OPERATIVE REPORT DATE OF OPERATION: 10/26/2017 SURGEON: Lynn Lema MD ANESTHESIA: Laryngeal mask. PREOPERATIVE DIAGNOSIS: 1. Left ureteral stent displacement. 2. Bladder cancer, status post transurethral resection of bladder tumor and left ureteral stent placement. POSTOPERATIVE DIAGNOSIS: 1. Left ureteral stent displacement. 2. Bladder cancer, status post transurethral resection of bladder tumor and left ureteral stent placement. PROCEDURE PERFORMED: 1. Cystourethroscopy, left retrograde pyelography. 2. Left ureteroscopy with ureteral stent extraction. 3. Left ureteral stent replacement (4.7-Belizean variable length). FINDINGS: The distal aspect of the previously-placed left ureteral stent had migrated into the distal ureter. SPECIMENS: None. ESTIMATED BLOOD LOSS: Minimal. INDICATIONS: This gentleman previously underwent transurethral bladder tumor resection with left ureteral stent placement on September 07. It was noted more recently that the stent placed at that time had migrated proximally with the distal aspect of the stent being within the distal ureter. Attempts to remove the stent in the office were unsuccessful. Therefore, I recommended the patient come to the operating room for removal of this existing indwelling stent and replacement of the stent to allow for more healing of the portion of bladder resected before removing it completely. The indications for the procedures, as well as potential risks and complications, were discussed with the patient preoperatively. He appeared to understand, his questions were answered, and he wished to proceed. Written informed surgical consent was thereafter obtained. DESCRIPTION OF PROCEDURE: The patient was brought to the operating room and administered laryngeal mask anesthesia. He was carefully placed in the dorsal lithotomy position on the cystoscopic table. The genital area was sterilely prepped with Betadine scrub and paint, and then draped in the usual sterile fashion. Cystoscopy was performed with 30 and 70-degree lenses through a 22-Belizean sheath. Anterior urethra revealed no abnormalities. Posterior urethra revealed mild BPH. Examination of the bladder revealed healing of the mucosa along the left trigone region as a result of prior transurethral bladder tumor resection. The left ureteral orifice was laterally displaced and had a [place] appearance due to prior resection for removal of tumor on 2 prior occasions. The distal aspect of the ureteral stent was not visualized at this time. Examination of the remainder of the bladder revealed no other areas of abnormal erythema, tumors, or foreign bodies. Bladder mucosa was heavily trabeculated and there were numerous shallow diverticula throughout the bladder. Spot fluoroscopic imaging revealed the distal aspect of the stent curled within the distal ureter. I then advanced a 5-Belizean open-ended ureteral catheter into the left ureter and, under active fluoroscopy, was able to advance it into the renal collecting system. This was followed by advancing a 0.035-inch hydrophilic guidewire through the ureteral catheter. It was then advanced proximally into the renal pelvis, and the ureteral catheter was removed while keeping the guidewire in place. Semi-rigid ureteroscopy was performed alongside the guidewire. The distal curl of the stent was seen in the distal ureter. I was able to grab it with flexible 4-prong grasping forceps. The distal aspect of the stent was then pulled into the bladder. I was then able to use the cystoscope and flexible grasping forceps to remove the stent completely while keeping the existing guidewire in place. I then reinserted the cystoscope and back loaded it over the guidewire with a 5- Belizean open-ended ureteral catheter. The ureteral catheter was advanced into the left upper urinary tract and the guidewire was temporarily removed. Contrast was injected through the ureteral catheter to opacify the renal collecting system and ureter. The ureter revealed some passive dilation, likely as a result of the indwelling ureteral stent. There was mild renal pelvic dilatation, but otherwise the renal collecting system was unremarkable. No filling defects were appreciated along the opacified portions of the ureter and renal collecting system. The guidewire was then inserted through the ureteral catheter and advanced into the renal collecting system. The ureteral catheter was removed, and a new 4.7- Belizean variable length hydrophilic ureteral stent was advanced over the guidewire until it was properly positioned as seen fluoroscopically in the kidney and cystoscopically in the bladder. I tried to ensure that there was more curl remaining within the bladder portion of the stent in order to minimize the risk of repeat proximal migration. The bladder was then drained of all return which was clear. The instruments were removed, and 20 cc of 2% lidocaine injected transurethrally for postoperative analgesic purposes. The patient was then awakened, transferred to his bed, and then taken to the recovery room. He tolerated the procedure well overall. COMPLICATIONS: None. DISPOSITION: He was transferred to the recovery room in stable condition. He will be discharged once meeting standard outpatient criteria with instructions to return to my office in approximately 2-3 weeks for probable removal of the ureteral stent at that time, and re-evaluation of the bladder cystoscopically to assess degree of healing in preparation for eventual radiation therapy to his bladder for treatment of muscle invasive bladder cancer. /[id number]/MODL MTDD
== END 2017-10-26 12:23 | disposition home or self-care (01) ==
LOC: FSGY 07:38
PROVIDERS: ATTEND Specialist
PROC: 0T778DZ Dilation of Left Ureter with Intraluminal Device, Via Natural or Artificial Opening Endoscopic (ICD-10-PCS; principal; 2017-10-26 09:30)
PROC: 0TP98DZ Removal of Intraluminal Device from Ureter, Via Natural or Artificial Opening Endoscopic (ICD-10-PCS; principal; 2017-10-26 09:30)
DX: C67.0 Malignant neoplasm of trigone of bladder (principal)
CPT/HCPCS: 52332; 76001; C1758; C1769; C2625; J1100; J1956; J2250; J2370; J2405; J2704; J3010; Q9967

== ENCOUNTER → 2018-03-30 | Outpatient (CLI) | payer OTHER ==
[~2018-03-30] MED LIST changes: -ACETAMINOPHEN 500 MG TAB PO PRN; -ENALAPRILAT DIHYDRATE 1.25 MG/ML VIAL IVP PRN; -HYDROCODONE/APAP 5/325 TAB PO PRN; +IOPAMIDOL (ISOVUE-300) 150 ML BTL ONE; -IOPAMIDOL (ISOVUE-M 300) 15 ML VIAL ONE; -LIDOCAINE 2% 5 ML SDV ONE; -LIDOCAINE 2% JELLY 5 ML TUBE ONE; -LR 1,000 ML IV ONE; -LR 500 ML IV PRN; -NALOXONE HCL 0.4 MG/ML INJ IVP PRN; -ONDANSETRON 4 MG/2 ML VIAL IVP PRN; -ONDANSETRON 4 MG/2 ML VIAL ONE; -PROMETHAZINE HCL 25 MG/ML INJ IVP PRN; -PROPOFOL 200 MG/20 ML VIAL ONE; -fentaNYL 100 MCG/2 ML INJ IVP PRN; -fentaNYL 100 MCG/2 ML INJ ONE; -levOFLOXACIN 500 MG/DEXTROSE 100 ML IV ONE
== END ==
LOC: FIMAGING 10:40
PROVIDERS: ATTEND Specialist
DX: C67.8 Malignant neoplasm of overlapping sites of bladder (principal); N13.30 Unspecified hydronephrosis; N32.3 Diverticulum of bladder; N32.89 Other specified disorders of bladder
CPT/HCPCS: 74178; Q9967; 82565-PO

== ENCOUNTER 2018-04-12 13:23 | Inpatient (IN) | payer OTHER ==
[2018-04-12] MEDS ORDERED: LR 1,000 ML IV ONE (13:48)
[2018-04-12] MEDS ORDERED: levOFLOXACIN 500 MG/DEXTROSE 100 ML IV ONE (15:31)
[2018-04-12] MEDS ORDERED: fentaNYL 100 MCG/2 ML INJ ONE ×2 (15:32→17:38)
[2018-04-12] MEDS ORDERED: PROPOFOL 200 MG/20 ML VIAL ONE ×2 (15:33)
[2018-04-12] MEDS ORDERED: IOPAMIDOL (ISOVUE-M 300) 15 ML VIAL ONE (15:59)
[2018-04-12] MEDS ORDERED: ALBUTEROL 3 ML DEYVIAL IH PRN (16:13)
[2018-04-12] MEDS ORDERED: LR 500 ML IV PRN (16:13)
[2018-04-12] MEDS ORDERED: NALOXONE HCL 0.4 MG/ML INJ IVP PRN (16:13)
[2018-04-12] MEDS ORDERED: ONDANSETRON 4 MG/2 ML VIAL IVP PRN (16:13)
--- NOTE | 2018-04-12 16:13 | PDANEPAE ---
ANE Past Medical History - Cardiovascular History Hx Hypertension: Yes Hx Arrhythmias: Yes Hx Chest Pain: No Hx Coronary Artery / Peripheral Vascular Disease: Yes Hx CHF / Valvular Disease: No Hx Palpitations: No Cardiovascular History Comment: AFIB. CAD STENT 2013. CABGX3 1997. HYPERLIPIDEMIA - Pulmonary History Hx COPD: No Hx Asthma/Reactive Airway Disease: No Hx Recent Upper Respiratory Infection: No Hx Oxygen in Use at Home: No Hx Sleep Apnea: No Sleep Apnea Screening Result - Last Documented: Positive Pulmonary History Comment: SOME SIGNS OF EMPHYSEMA NOTED IN NOVEMBER 2016. 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 HX OF LAMI. PERIPHERAL NEUROPATHY - Endocrine History Hx Diabetes: Yes Endocrine History Comment: IDDDM - Renal History Hx Renal Disorders: Yes Renal History Comment: BLADDER CA. TURBT 11/2016 AND 09/07/17. HAVING TROUBLE WITH STENT CURRENTLY FROM AUGUST SURG. BPH - Liver History Hx Hepatic Disorders: No Hepatic History Comment: CASPER - Neurological & Psychiatric Hx Hx Neurological and Psychiatric Disorders: No Neurological / Psychiatric History Comment: HX OF DEPRESSION - Cancer History Hx Cancer: Yes Cancer History Comment: SKIN. BLADDER TUMOR. CHEMOTHERAPY FINISHED 01/15/18. RADIATION FINISHED 01/23/18 - Congenital Disorder History Hx Congenital Disorders: No - GI History Hx Gastrointestinal Disorders: Yes Gastrointestinal History Comment: ACID REFLUX. HX OF COLON POLYPS - Other Health History Other Health History: RHEUMATOID ARTHRITIS. POLIO DURING CHILDHOOD NO RESIDUAL EFFECTS. WEARS GLASSES. GLAUCOMA - Chronic Pain History Chronic Pain: No - Surgical History Prior Surgeries: LT URETHERAL STENT/EXCHANGE 10/13. 09/07/17 TURBT, URETEROSCOPY AND STENT PLACED. 12/01/2016 TUR BLADDER TUMOR. BILATERAL CATARACT/ GLAUCOMA 2004. MOHS PROCEDURE NASAL. RT TOTAL KNEE. LUMBAR LAMINECTOMY X2. CERVICAL LAMINECTOMY. CABG X3 1997. RT ANKLE X2. REMVL RT EPIDIDYMIS / INFECTION. CASPER. T&A. VINAY HERNIA 1936 ANE Review of Systems Review of Systems: - Exercise capacity METS (RN): 4 METS ANE Patient History - Allergies Allergies/Adverse Reactions: No Known Allergies Allergy (Verified 10/20/17 11:39) - Home Medications Home Medications: Insulin Glargine [Lantus 100 UNITS/ML] 12 units SC HS 10/17/13 [Last Taken 04/11 12 units] Metoprolol Tartrate [Lopressor 25 mg (*)] 12.5 mg PO BIDMEAL 10/17/13 [Last Taken 04/12/18] Tamsulosin HCl [Flomax 0.4 MG (*)] 0.5 mg PO DAILY 10/17/13 [Last Taken 04/12/18 ] Ranitidine HCl [Zantac] 150 mg PO BIDMEAL 11/15/16 [Last Taken 04/12/18] Simvastatin [Zocor] 20 mg PO HS 11/15/16 [Last Taken 04/11/18] Aspirin [Aspirin 81mg (*)] 81 mg PO DAILY 08/24/17 [Last Taken 04/11/18] Insulin Lispro [humALOG LISPRO 100 units/ml (*)] 0 unit SC TIDMEAL 08/24/17 [ Last Taken 04/11/18 5 units] Bromfenac Sodium [Prolensa] 1 drop RTEYE BID 04/04/18 [Last Taken 04/11/18] Timolol Maleate [Timolol Maleate] 1 drop EACHEYE BID 04/04/18 [Last Taken ] - NPO status NPO Since - Liquids (Date): 04/12/18 NPO Since - Liquids (Time): 07:45 NPO Since - Solids (Date): 04/12/18 NPO Since - Solids (Time): 07:45 - Smoking Hx Smoking Status: Never smoked - Family Anes Hx Family Hx Anesthesia Complications: NONE ANE Labs/Vital Signs - Vital Signs Blood Pressure: 178/92 Heart Rate: 67 Respiratory Rate: 16 O2 Sat (%): 95 Height: 172.72 cm Weight: 90.718 kg ANE Physical Exam - Airway Neck exam: decreased ROM Mallampati Score: Class 2 Mouth exam: normal dental/mouth exam - Pulmonary Pulmonary: no respiratory distress, no rales or rhonchi, clear to auscultation - Cardiovascular Cardiovascular: regular rate and rhythym, no murmur, rub, or gallop - ASA Status ASA Status: III ANE Anesthesia Plan Anesthesia Plan: GA w LMA
--- NOTE | 2018-04-12 17:18 | POSTOPPROG ---
Post Op Note Date of Operation: 04/12/18 Surgeon: Lynn Lema (# [id number]) Anesthesia: GET(General Endotracheal) Pre-op Diagnosis: Recurrent bladder tumor w/ h/o CA, left ureteral obstruction Post-op Diagnosis: Recurrent bladder tumor w/ h/o CA, left ureteral obstruction Procedure: 3 cm TURBT, left ureteroscopy & ureteral stent placement Findings: See op note Inf/Abcess present in the surg proc area at time of surgery?: No EBL: Minimal Complications: None Specimen(s): Bladder tumor
[2018-04-12] MEDS: fentaNYL 100 MCG/2 ML INJ IVP PRN ×2 (17:39→17:56)
[2018-04-12] MEDS ORDERED: OPIUM/BELLADONNA ALKALO SUPP PR ONE (18:00)
[2018-04-12] MEDS ORDERED: CYCLOBENZAPRINE 10 MG TAB PO ONE (18:30)
[2018-04-12] MEDS ORDERED: HYDROmorphONE/DILAUDID 1 MG/ML INJ IVP PRN (19:24)
--- NOTE | 2018-04-12 20:39 | NEUSURGPN ---
Assessment/Plan: Neurosurgery Consult: Full consult dictated 83 yo male sp TURP procedure and awoke from surgery with sudden weakness and "heaviness" in RLE. -Patient seen in PACU and was able to raise RLE off of bed and had some improvement in strength from immediately postop -Normal sensation in BLE, no numbness, tingling, pain in legs. Does have peripheral neuropathy from diabetes -No clonus -BUE 5= -Patient with x of laminectomy previously in [place] but no other spine history and no recent complaint of any weakness in legs -will obtain MRI Lumbar to rule out acute change but may be from positioning as well -Seen in PACU. Dr. Perry to see later this evening as well -Keep NPO until MRI performed -Any changes in exam call ENRIQUETA Stevens PA-C [phone] Neurosurgery Physical Exam - Vitals, I&O, Labs I and O 04/11/18 04/12/18 04/13/18 05:59 05:59 05:59 Weight 90.718 kg Vital Signs Temp Pulse Resp BP Pulse Ox 36.2 C 56 L 16 165/73 H 99 04/12/18 19:15 04/12/18 17:09 04/12/18 20:15 04/12/18 20:15 04/12/18 20:15 ICD10 Worksheet Patient Problems: Problems Problem Status Onset UTI (urinary tract infection) Acute Septic shock Acute Bacteremia due to Gram-negative bacteria Acute Severe sepsis without septic shock Acute
--- NOTE | 2018-04-12 21:11 | POSTANESTH ---
Post Anesthetic Evaluation Cardiovascular Status: Normal, Stable, Similar to Pre-Op Cond Respiratory Status: Normal, Stable, Similar to Pre-op Cond. Level of Consciousness/Mental Status: Moderately Sleepy Pain Control: Adequate, Prn Tx Ordered Nausea/Vomiting Control: Adequate, Prn Tx Ordered Complications Possibly Related to Anesthesia: None Noted Notes: Post anesthesia assessment done at 17.20, immediately after surgery.
--- NOTE | 2018-04-12 21:15 | SOAPPROG ---
SOAP Progress Note Assessment/Plan: Assessment: Bladder tumor with high-grade left ureteral obstruction, s/p TURBT, ureteroscopy & ureteral stent placement. Developed acute RLE weakness. Currently undergoing neurosurgical evaluation, scheduled for MRI. Plan: Will admit overnight for observation while NS evaluation is completed & MRI obtained. Objective: Vital Signs Temp Pulse Resp BP Pulse Ox 36.2 C 56 L 16 165/73 H 99 04/12/18 19:15 04/12/18 17:09 04/12/18 20:15 04/12/18 20:15 04/12/18 20:15 ICD10 Worksheet Patient Problems: Problems Problem Status Onset Bladder cancer Acute - ICD10 Problem Qualifiers (1) Bladder cancer
[2018-04-12] MEDS ORDERED: D50W 25 GM/50 ML SYR IVP PRN (21:19)
[2018-04-12] MEDS ORDERED: OPIUM/BELLADONNA ALKALO SUPP PR PRN (21:20)
[2018-04-12] MEDS ORDERED: NS 1,000 ML IV SCH (21:30)
--- NOTE | 2018-04-12 21:37 | GCON ---
NEUROSURGERY CONSULTATION NOTE CHIEF COMPLAINT: Weakness in the legs post TURP procedure. HISTORY OF PRESENT ILLNESS: This is an 83-year-old male who had a TURP procedure by Dr. Lema today . After surgery, he came to the PACU. When he awoke, he stated that he was unable to move his right leg. Neurosurgery services were consulted and requested a stat MRI. He was seen by Dr. Rojas as w vinita in the PACU and Dr. Lema, who suggested that it possibly was part of some positioning but did n ot have any exact cause for this weakness. The patient stated that when he awoke, he did have some n vik pain as well and had a very hard time lifting his right leg. The patient states that he does hav e a history of a laminectomy a few years ago in [place] at some unknown levels. Patient states that prior to this operation, he had full strength in his legs without any numbness, tingling, or pain in his legs. The patient is diabetic and so he does have a history of neuropathy. On my consultation w ith him in the PACU, he was able to start moving his right leg some, lifting it off the bed, but stat ed that it felt "heavy." He did state that his sensation, however, was intact and felt normal in com parison to his left leg. He denied any other symptoms at this time, except for the current surgical pain from his TURP procedure. REVIEW OF SYSTEMS: All pertinent positive and negative review of systems are as stated in the HPI. PAST MEDICAL HISTORY: The patient has a past medical history of diabetes. He has had a history of a n [place] as well as a stroke in the past, which he did not have any deficits after. The patient has a hi story also of UTI. HOME MEDICATIONS: Include ranitidine, Flomax, simvastatin, metoprolol, insulin, insulin glargine, as pirin, timolol, bromfenac sodium, and hydrocodone/acetaminophen. ALLERGIES: Patient has no known drug allergies. SURGICAL HISTORY: Patient had a TURP today, has a history of a lumbar laminectomy a few years ago in [place]. He also has a history of a stroke and an [place] in the past. He does not recall what year. SOCIAL HISTORY: Patient's and son are at the bedside. He has never smoked, does not use any al cohol, and does not use any other drug use. OBJECTIVE: VITAL SIGNS: Blood pressure 153/64, pulse 79, heart rate 78, respiratory rate is 14, O2 sat is 100% on nasal cannula, temperature 36.2. CONSTITUTIONAL: Patient is alert and awake and orie nted x3. HEENT: Head is normocephalic, atraumatic. Eyes: Pupils are equal and reactive to light a nd accommodation. Extraocular muscles are intact. NECK: Nontender with palpation, has full range o f motion. NEUROLOGIC: Cranial nerves 2 through 12 are grossly intact. Face is symmetrical. Speech is fluent. Tongue protrusion is midline. Palate rises symmetrically. Sensation is intact to light touch over the face. Gross neurologic motor exam: Bilateral upper extremities are 5/5 and equal in strength in all muscle groups including deltoids, biceps, triceps, wrist extensors, flexors, interos sei, and conductor pullman, and sensation is intact over the normal dermatomal distribution of the body. Bilatera l lower extremities: Left lower extremity is 5/5 and equal in strength in dorsiflexion, plantar flex ion, EHL, quadriceps, and hamstrings. Right lower extremity: He is able to lift his right leg off t he bed and resist but is not able to lift this more than 2 inches off the bed. His sensation is inta ct in normal dermatomal distribution. He is negative for clonus. Deep tendon reflexes are 2+ in the left leg. Right leg is hard to assess due to his knee replacement. Grossly in all muscle groups, h e is about a 3+ out of 5, and this is improved from his original state after postop. EXTREMITIES: W arm and pink without any cyanosis. Pulses are intact distally. There is no edema noted. LABORATORY DATA: Glucose 77. DIAGNOSTIC IMAGING REVIEW: There is no current diagnostic imaging to review. The patient is sched ed for a stat MRI here shortly. ASSESSMENT AND PLAN: This is an 83-year-old male who had a transurethral resection of the prostate p rocedure today and who awoke with a sudden weakness and heaviness in his right leg. Currently during my exam, his strength in his right leg was noted to be better than he initially had when he woke up. He does have full sensation in both of his lower extremities without any concerning reflexes. The right leg is still notably weaker than his left, although I am not sure at this time if it is from po sitioning or something else, but we will obtain a lumbar MRI to make sure there is nothing more urgen t going on and proceed with any treatment if it is necessary at that point. Patient was seen in the post-anesthesia care unit at approximately 7:45 p.m. He will also be seen by Dr. Isai Rosado later this evening. Once we obtain his MRI, we will take a look and make any further treatment decis ions if necessary from there. Patient should remain nothing by mouth at this time until we have seen his MRI. He should refrain off any deep venous thrombosis prophylaxis at this time until we see his MRI. /[id number]/MODL
[2018-04-12] MEDS: INSULIN GLARGINE 100 UNITS/ML UNIT SC SCH (22:16)
--- NOTE | 2018-04-12 22:47 | GOP ---
DATE OF OPERATION: 04/12/2018 SURGEON: Lynn Lema MD ANESTHESIA: General endotracheal. PREOPERATIVE DIAGNOSIS: 1. Approximately 3 cm recurrent bladder tumor with history of muscle invasive bladder cancer. 2. Distal left ureteral obstruction with severe hydroureteronephrosis due to recurrent bladder tumor. POSTOPERATIVE DIAGNOSIS: 1. Approximately 3 cm recurrent bladder tumor with history of muscle invasive bladder cancer. 2. Distal left ureteral obstruction with severe hydroureteronephrosis due to recurrent bladder tumor. PROCEDURE PERFORMED: 1. Cystourethroscopy with transurethral resection of 3 cm bladder tumor. 2. Left diagnostic ureteroscopy. 3. Left ureteral stent placement (7-Hungarian multi-length). FINDINGS: 1. Grady appearing approximately 3 cm tumor surrounding and obstructing the distal left ureter. 2. Severe hydroureteronephrosis down to ureterovesicular junction, but also with focal concentric narrowing of the ureter just above the pelvic inlet. SPECIMENS: Bladder tumor. ESTIMATED BLOOD LOSS: Minimal. INDICATIONS: This gentleman was recently found to have a recurrent bladder tumor resulting in severe obstruction of his left distal ureter. It was recommended that he undergo intraoperative management. The indications for the procedures as well as potential risks and complications were discussed with the patient preoperatively. He appeared to understand. His questions were answered , and he wished to proceed. Written informed surgical consent was thereafter obtained. DESCRIPTION OF PROCEDURE: The patient was brought to the operating room and administered general endotracheal anesthesia. He was carefully placed in the dorsal lithotomy position on the cystoscopic table utilizing Gerard stirrups. The genital area was sterilely prepped with Betadine scrub and paint then draped in usual sterile fashion. Cystoscopy was performed with 30- and 70- degree lenses through a 22-Hungarian sheath. Anterior urethra revealed no abnormalities. Posterior urethra revealed mild BPH. Examination of bladder revealed a choctaw appearing 3 cm tumor surrounding the left ureteral orifice. No other tumors were definitively seen within the bladder. Right ureteral orifice was normal in regard to shape and position along the trigone. The bladder was heavily trabeculated, which is chronic for this patient. I then inserted the 24-Hungarian resectoscopic sheath with visual obturator followed by the Wm resectoscope, a cutting loop, and a 30-degree lens. Using normal saline passive continuous flow, the tumor was systematically resected. I resected as deeply as possible until I felt that I could no longer comfortably resect. I was essentially resecting the transmural portion of the distal left ureter. It was not definitively clear visually whether the entire tumor was removed, but again, I resected as deeply as possible without risk of completely avulsing the distal ureter from the bladder. The specimen was collected and sent to Pathology. I then reinserted the cystoscope followed by a 5-Hungarian open-ended ureteral catheter and a 0.035 inch hydrophilic guidewire. The guidewire was advanced into the distal left ureter along with the ureteral catheter. Contrast was then injected through the ureteral catheter to opacify the left ureteral intraluminal anatomy. The ureter was noted to be severely dilated throughout its entire length with areas of tortuosity and kinking. I was eventually able to navigate the ureteral catheter into the renal collecting system. Contrast injected there also revealed severe hydronephrosis. However, there were no obvious intraluminal filling defects appreciated. I then left the guidewire in place and removed the ureteral catheter in preparation for semi-rigid ureteroscopy. The cystoscope was removed and semi-rigid ureteroscopy was performed alongside the guidewire. Other than severe dilation of the ureter, no tumors were definitively seen. There was some concentric narrowing of the ureter just proximal to the pelvic inlet of unclear significance. I was able to navigate through this narrowing with a second guidewire then advanced the ureteroscope over this wire and all the way to the renal pelvis. Again, other than massive dilation, no other intraluminal mucosal abnormalities were appreciated. The ureteroscope was withdrawn and the cystoscope was back-loaded over the guidewire. A 7-Hungarian multi-length hydrophilic ureteral stent was advanced over the guidewire until it was properly positioned as seen fluoroscopically in the kidney and cystoscopically in the bladder. The bladder was then drained of all return which was slightly pink tinged. I decided to fulgurate around the resected area of the bladder for both hemostasis and local tumor control purposes. The Unger resectoscope was then reinserted through the 24-Hungarian sheath. Using a button electrode, I thoroughly fulgurated the resected region as well as the remaining intramural portion of the ureter surrounding the stent. Hemostasis was excellent at this point. No gross perforation of the bladder had ensued as a result of the operative process. The instruments were removed and an 18-Hungarian 3-way Cantor catheter inserted with 15 cc of sterile water placed in the balloon. The catheter irrigated manually, and the return was completely clear. Therefore, I did not feel that continuous irrigation would be necessary. A catheter plug was placed in the irrigation port, and the catheter was connected to bag drainage. The patient was awakened, extubated, transferred to his bed then taken to the recovery room. He tolerated the procedure well overall. COMPLICATIONS: None. DISPOSITION: He was transferred to the recovery room in stable condition. It appears he will be likely discharged home with indwelling Cantor catheter over the weekend. I anticipate leaving the ureteral stent in place for approximately 6 weeks before removing it. /[id number]/MODL MTDD
[2018-04-13] MEDS ORDERED: HYDROmorphONE/DILAUDID 2 MG/ML INJ IVP PRN (03:30)
--- NOTE | 2018-04-13 07:40 | NEUSURGPN ---
Assessment/Plan: A: 83 yo male sp TURP procedure and awoke from surgery with sudden weakness and "heaviness" in RLE. P: -Patient strength appears to be improving slowly. 5/5 LLE, 5/5 RLE with exception of DF appx 5-/5 and R quad appx 4/5 -Normal sensation in BLE, no numbness, tingling, pain in legs. Does have peripheral neuropathy from diabetes -MRI L spine reviewed shows mod-sev stenosis at L2/3 -Patient with x of laminectomy previously in [place] but no other spine history and no recent complaint of any weakness in legs -Will plan for PT/OT and conservative management. No surgery unless he starts to decline significantly. He may require surgery at some point in the future. -Any changes in exam call NS -Pt d/w Dr Perry. Pt seen by Dr Perry as well today. Subjective: Pt resting in bed, states his legs are feeling a little bit better. Objective: AAOx3 NAD VSS MAEx4 Motor 5/5 LLE, 5/5 RLE with exception of right quad 4/5, DF is 5-/5 +LT Urinary Catheter in Place: Yes Urinary Catheter Indication: Surgical Requirement - Physician Discussed Patient with : Alonzo Patient Seen by : Alonzo Neurosurgery Physical Exam - Vitals, I&O, Labs I and O 04/12/18 04/13/18 04/14/18 05:59 05:59 05:59 Intake Total 630 Output Total 1150 Balance -520 Weight 90.718 kg Intake: IV Intake (ml) 630 Output: Urine (ml) 1150 Catheter 1150 Vital Signs Temp Pulse Resp BP Pulse Ox 36.6 C 71 14 128/65 H 98 04/13/18 04:13 04/13/18 04:13 04/13/18 04:13 04/13/18 04:13 04/13/18 04:13 ICD10 Worksheet Patient Problems: Problems Problem Status Onset Bladder cancer Acute
[2018-04-13] MEDS: METOPROLOL TARTRATE 25 MG TAB PO SCH ×2 (08:42→18:49)
[2018-04-13] MEDS: ATORVASTATIN CALCIUM 10 MG TAB PO SCH (08:44)
[2018-04-13] MEDS: TAMSULOSIN HCL 0.4 MG CAP PO SCH (08:44)
[2018-04-13] MEDS: FAMOTIDINE 20 MG TAB PO SCH ×2 (08:44→22:29)
[2018-04-13] MEDS: INSULIN REGULAR HUMAN 100 UNIT/ML UNIT SC SCH ×4 (09:15→21:52)
--- NOTE | 2018-04-13 13:14 | SOAPPROG ---
SOAP Progress Note Assessment/Plan: Assessment: Bladder tumor with high-grade left ureteral obstruction, s/p TURBT, ureteroscopy & ureteral stent placement. Developed acute RLE weakness immediately postoperatively that has essentially resolved. Appreciate neurosurgical input. Plan: 1. Discharge. 2. As recommended, will arrange for outpatient OT & PT assessment and treatment. Subjective: Pt. is doing well Objective: Vital Signs Temp Pulse Resp BP Pulse Ox 36.9 C 74 16 141/73 H 94 04/13/18 08:06 04/13/18 08:06 04/13/18 08:06 04/13/18 08:06 04/13/18 08:06 04/12/18 04/13/18 04/14/18 05:59 05:59 05:59 Intake Total 630 Output Total 1150 Balance -520 ICD10 Worksheet Patient Problems: Problems Problem Status Onset Bladder cancer Acute - ICD10 Problem Qualifiers (1) Bladder cancer
--- NOTE | 2018-04-13 16:30 | ASMTCMCOM ---
CM Note CM Note Notes: Chart and plan of care reviewed with Minoo RUTH. The patient is an 83 year old male s/p turp with history of chronic back pain who has developed increased pain s/p TURP in his leg. Per PT he is exhibiting significant weakness and the recommendation at this point is a SaNF vs home with 24 hour care and PT. Plan: TBD Date Signed: 04/13/2018 04:29 PM Electronically Signed By:Corine Nieto RN
--- NOTE | 2018-04-13 16:53 | SOAPPROG ---
SOAP Progress Note Assessment/Plan: Assessment: Bladder tumor with high-grade left ureteral obstruction, s/p TURBT, ureteroscopy & ureteral stent placement. Developed acute RLE weakness immediately postoperatively that is improved, but pt. still unable to ambulate or support any weight on his right leg. Therefore, will need further inpt. assessment, treatment, and probable SNF placement. Plan: 1. Hold discharge. 2. Continue inpt. OT & PT assessment and treatment, then determine placement needs. 3. Hospitalist service to assume remaining inpt. care -- I have discussed w/ Dr. Bobo. I really appreciate their assistance w/ this pt. Subjective: Upon attempting to stand, pt. is unable to support much weight on his right leg and is definitely not independent w/ attempted ambulation. Objective: Vital Signs Temp Pulse Resp BP Pulse Ox 37.3 C 94 16 136/77 H 89 L 04/13/18 13:49 04/13/18 13:49 04/13/18 13:49 04/13/18 13:49 04/13/18 13:49 04/12/18 04/13/18 04/14/18 05:59 05:59 05:59 Intake Total 630 Output Total 1150 Balance -520 ICD10 Worksheet Patient Problems: Problems Problem Status Onset Bladder cancer Acute - ICD10 Problem Qualifiers (1) Bladder cancer
[2018-04-13] MEDS: TIMOLOL 0.5% 15 ML OPHT.BTL RTEYE SCH ×2 (18:45→22:27)
[2018-04-13] MEDS: HYDROCODONE/APAP 5/325 TAB PO PRN (18:49)
[2018-04-13] MEDS: INSULIN GLARGINE 100 UNITS/ML UNIT SC SCH (22:29)
--- NOTE | 2018-04-14 03:11 | GHP ---
DATE OF ADMISSION: 04/12/2018 CHIEF COMPLAINT: Right leg weakness. HISTORY OF PRESENT ILLNESS: The patient is a pleasant 83-year-old gentleman with a past medical hist ory of bladder cancer diagnosed in November 2016. He was initially treated with chemotherapy and radiati on and completed this in 2018. Patient was found to have recurrent tumor with associated distal left ureter obstruction with severe hydronephrosis secondary to the recurrent bladder tumor. Patient was taken to the operating room on 04/12/2018 for subsequent stent placement. After his surgery, he dev eloped right lower extremity weakness. He had an MRI of the lumbar spine performed, which showed mul tilevel degenerative changes but moderately severe central canal stenosis in the lumbar spine most no table at L2 and L3. Neurosurgery was consulted along with Physical Therapy. Fortunately, patient's symptoms did improve but he was debilitated enough that it was not felt he could be safely discharged back to home. Patient does have a history of atrial fibrillation and is not on anticoagulation. I reviewed the case with Dr. Lema and the hospitalist service was asked to take over his case at this point in time to assist with further investigation of right lower extremity weakness as well as assi st with arrangements for a safe place at discharge. PAST MEDICAL HISTORY: Coronary artery disease with history of CABG, atrial fibrillation (paroxysmal) , diabetes mellitus type 2, history of polymyalgia rheumatica, BPH, history of bladder cancer. PAST SURGICAL HISTORY: Back surgery, neck fusion, total knee arthroplasty. CURRENT MEDICATIONS: Include atorvastatin 10 mg daily, Pepcid 20 mg twice a day, as-needed hydrocodo ne/acetaminophen, Dilaudid 0.2 mg IV q.2 hours as needed, insulin (Lantus) 12 units nightly, regular insulin sliding scale, metoprolol tartrate 12.5 mg twice a day, Flomax 0.4 mg daily, opium-belladonna alkaloids 1 every 6 hours as needed, Timolol eye drops. ALLERGIES: No known drug allergies. FAMILY HISTORY: Unknown. SOCIAL HISTORY: Patient previously residing at home with his prior to coming into the hospital. REVIEW OF SYSTEMS: 10-point review of systems performed and negative other than as stated in the HPI . PHYSICAL EXAMINATION: VITAL SIGNS: Temperature 37.3, blood pressure 102/56, heart rate 83, respirat ions 16, satting 96% on room air. GENERAL: Patient sleeping comfortably when I come into the room b ut arousable and conversant. No acute distress. HEENT: Extraocular movements intact. No scleral i cterus. NECK: Supple. No thyroid enlargement noted. CHEST: Clear on auscultation with normal res piratory effort. HEART: Regular but soft heart sounds. ABDOMEN: Soft, nontender, nondistended. G U: Cantor catheter in place with gross hematuria in Cantor bag. EXTREMITIES: No significant pitting edema. NEUROLOGIC: 3/5 strength in right lower extremity as compared to 5/5 in the left lower extre mity, 5/5 bilateral upper extremity strength. Grossly, cranial nerves 2-12 appear intact. LABORATORY DATA: Last 4 glucose readings have been 93, 77, 77, and 105. ASSESSMENT AND PLAN: Right leg weakness, possibly secondary to lumbar stenosis noted on MRI. Jay jones, in light of his history of atrial fibrillation and not being on anticoagulation, I recommend an MR I of the brain to evaluate for the potential for a stroke. Otherwise continue to work with Physical Therapy and Occupational Therapy and look towards safe place for discharge. Bladder cancer. Patient is status post chemotherapy and radiation treatment, which completed earlier this year. Dr. Caldwell is following from an oncology standpoint. He had recent tumor recurrence no jayna with subsequent obstruction of left ureter with subsequent stent placement during this hospitaliz ation. Coronary artery disease. Continue current medical management including statin therapy. Currently as ymptomatic. Aspirin currently on hold in light of hematuria. Atrial fibrillation. Continue with metoprolol for rate control. No anticoagulation. Diabetes mellitus type 2. Continue current Lantus and sliding scale. BPH. Flomax. Deep vein thrombosis prophylaxis. Hold heparin or Lovenox currently in light of hematuria. /[id number]/MODL
[2018-04-14 05:23] LABS: PLATELET COUNT 109 10^3/uL (150-400)
[2018-04-14] MEDS: HYDROCODONE/APAP 5/325 TAB PO PRN ×3 (06:44→22:11)
[2018-04-14] MEDS: INSULIN REGULAR HUMAN 100 UNIT/ML UNIT SC SCH ×4 (09:11→22:12)
[2018-04-14] MEDS: ATORVASTATIN CALCIUM 10 MG TAB PO SCH (09:11)
[2018-04-14] MEDS: TAMSULOSIN HCL 0.4 MG CAP PO SCH (09:12)
[2018-04-14] MEDS: METOPROLOL TARTRATE 25 MG TAB PO SCH ×2 (09:12→18:19)
[2018-04-14] MEDS: FAMOTIDINE 20 MG TAB PO SCH ×2 (09:12→22:11)
[2018-04-14] MEDS: TIMOLOL 0.5% 15 ML OPHT.BTL RTEYE SCH (09:14)
--- NOTE | 2018-04-14 10:37 | HOSPPROG ---
Hospitalist Progress Note Assessment/Plan: # R ankle arthritis - patient reports hx gout and RA (although RF here negative in 2013); had been on mtx - will r/o occult fracture with XR - check uric a, RF, CRP, ESR (may be hard to interpret) - if negative, will start steroids # R leg weakness - MRI brain negative - suspect d/t spinal stenosis or foraminal stenosis; no intervention at this time per NSG # bladder tumor, L ureteral obstruction s/p TURBT with L ureteral stent placement - ongoing hematuria # CAD - holding asa with hematuria - cont metop and lipitor # a-fib - not on AC, holding asa - cont metop # DM2 - cont glargine 12 + regular SSI - gluce ok # CKD - stable, caution with nephrotoxins Subjective: acute onset of R ankle pain last night Objective: Vital Signs Temp Pulse Resp BP Pulse Ox 36.6 C 85 20 152/71 H 95 04/14/18 08:00 04/14/18 08:00 04/14/18 08:00 04/14/18 08:00 04/14/18 08:00 Laboratory Results 04/14/18 04:34 04/14/18 04:34 04/13/18 04/14/18 04/15/18 05:59 05:59 05:59 Intake Total 630 550 Output Total 1150 700 275 Balance -520 -150 -275 chart reviewed MRI brain and l-spine reviewed - Physical Exam Constitutional: uncomfortable Cardiovascular: regular rate and rhythym, no murmur, rub, or gallop Respiratory: no respiratory distress, no rales or rhonchi, clear to auscultation Gastrointestinal: soft, non-tender abdomen, no palpable masses, No guarding, No rebound, No distension Musculoskeletal: other (R ankle with edema; no erythema; TTP with palpation and movement) ICD10 Worksheet Patient Problems: Problems Problem Status Onset Bladder cancer Acute
--- NOTE | 2018-04-14 11:12 | ASMTCMCOM ---
CM Note CM Note Notes: Spoke with pt regarding SNF vs homecare d/c. He was unable to work with PT today due to pain in his leg and foot which the MD thinks may be related to a gout flare. Pt did not want to make a d/c plan until he is able to work with PT again. He is the CG for his who uses a walker - currently his son is staying with her. We discussed possiblity of his going to the son's house until pt is either home from a SNF stay or stronger if he discharges with homecare. Pt will discuss with his son. CM will continue to follow for d/c needs. Date Signed: 04/14/2018 11:11 AM Electronically Signed By:SYDNEY Ledesma
[2018-04-14] MEDS ORDERED: ACETAMINOPHEN 325 MG TAB PO PRN (11:54)
[2018-04-14] MEDS: predniSONE 20 MG TAB PO SCH (12:49)
--- NOTE | 2018-04-14 13:19 | NEUSURGPN ---
Assessment/Plan: A: 83 yo male sp TURP procedure and awoke from surgery with sudden weakness and "heaviness" in RLE. P: -Patient strength appears to be improving and per patient is back to his normal state prior to surgery. Has soem ankle pain from arthitis but he states this is normal for him and mostly due to not being up on it as much. 5/5 LLE, 5/5 RLE with exception of DF appx 5-/5 and R quad appx 5/5 -Normal sensation in BLE, no numbness, tingling, pain in legs. Does have peripheral neuropathy from diabetes -MRI L spine reviewed shows mod-sev stenosis at L2/3 -Patient with x of laminectomy previously in [place] but no other spine history and no recent complaint of any weakness in legs -No neurosurgical intervention recommended at this time. Continues to improve. Recommend outpatient follow up. Neurosurgery will sign off at this time. -Any changes in exam call NS -Pt d/w Dr. Perry Subjective: Pt resting in bed. States right leg is "working now". Has some right ankle pain but he states he has arthritis in that ankle and hurts more when he hasn't used it. Objective: AAOx3 NAD VSS MAEx4 Motor 5/5 LLE, 5/5 RLE right quad 5/5, DF is 5-/5 +LT - Physician Discussed Patient with : Alonzo Neurosurgery Physical Exam - Vitals, I&O, Labs I and O 04/13/18 04/14/18 04/15/18 05:59 05:59 05:59 Intake Total 630 550 Output Total 1150 700 275 Balance -520 -150 -275 Weight 90.718 kg Intake: Oral (ml) 550 IV Intake (ml) 630 Output: Urine (ml) 1150 700 275 Catheter 1150 700 275 Vital Signs Temp Pulse Resp BP Pulse Ox 37.2 C 81 16 171/81 H 95 04/14/18 12:00 04/14/18 12:00 04/14/18 12:00 04/14/18 12:00 04/14/18 12:00 Laboratory Results 04/14/18 11:36 04/14/18 04:34 ICD10 Worksheet Patient Problems: Problems Problem Status Onset Bladder cancer Acute
--- NOTE | 2018-04-14 13:48 | CPEKG ---
Test Reason : OPEN Blood Pressure : / mmHG Vent. Rate : 073 BPM Atrial Rate : 072 BPM P-R Int : 221 ms QRS Dur : 108 ms QT Int : 408 ms P-R-T Axes : -67 -37 006 degrees QTc Int : 450 ms Sinus or ectopic atrial rhythm Prolonged DE interval Left axis deviation Confirmed by Davidson Hernandez [id number] on 04/14/2018 1:48:38 PM Referred By: Confirmed By:Davidson Hernandez
[2018-04-14] MEDS ORDERED: TIMOLOL 0.5% 15 ML OPHT.BTL EACHEYE SCH (21:00)
[2018-04-14] MEDS: INSULIN GLARGINE 100 UNITS/ML UNIT SC SCH (22:12)
[2018-04-15 05:37] LABS: PLATELET COUNT 118 10^3/uL (150-400)
[2018-04-15 07:46] VITALS: BP 149/75
--- NOTE | 2018-04-15 09:27 | PDIAF ---
- Diagnosis Diagnosis: TURBT, gout Code Status: Full Code - Medication Management Discharge Medications: electronically signed and located in the Home Medication List. - Orders Services needed: Home Care, Registered Nurse, Certified Soap Worker, Physical Therapy, Occupational Therapy Home Care Face to Face: I certify that this patient was under my care and that I had the required [id number] encounter meeting the encounter requirements on the discharge day. My findings support the fact that the patient is homebound as defined in Home Care Face to Face Continued: CMS Chapter 7 Medicare Benefits Manual 30.1.1 , The condition of the patient is such that there exists a normal inability to leave home and consequently, leaving home would require a considerable and taxing effort. Diet Recommendation: no restrictions on diet Diet Texture: Regular Texture Diet Additional Instructions: 1. Routine Cantor care, as instructed. 2. Make sure penile foreskin stayed reduced over head of penis at all times. 3. No lifting > 15 lbs. nor exercise more strenuous than walking for 2 weeks. 4. Remove Cantor catheter at home on Monday at 8 am -- as instructed. Alternatively, call office to schedule Cantor removal in office for Monday AM. 5. Continue preadmission medications. 6. [facility] Rx. on chart. 7. Follow-up with outpatient occupational therapy and physical therapy, as scheduled. 8. Follow-up w/ Dr. Lema in 2 weeks for review of pathology results and in 6 weeks for ureteral stent removal -- call office to schedule these appointments. - Follow Up Care Current Providers and Referrals: Edwin Wall MD [Primary Care Provider] - Lynn Lema MD [Medical Doctor] - Isai Rosado MD [Medical Doctor] -
--- NOTE | 2018-04-15 09:40 | ASMTLACE ---
LACE Length of stay for Answers: 2 days current admission Comorbidities - select Answers: Any tumor (including all that apply lymphoma or leukemia) Cerebrovascular disease (CVA, TIA, aneurysms, vasc ular dementia) Coronary Artery Disease Diabetes (uncontrolled or controlled) Other Notes: HTN # of Emergency department Answers: 0 visits in the last 6 months Score: 9 Date Signed: 04/15/2018 09:39 AM Electronically Signed By:Corine Nieto RN
--- NOTE | 2018-04-15 09:42 | ASMTCMCOM ---
CM Note CM Note Notes: Patient has been medically cleared for discharge to home with [facility]. Patient is agreeable and address and phone confirmed, referrals sent via allscripts pending acceptance. Plan: Home with [facility] Date Signed: 04/15/2018 09:41 AM Electronically Signed By:Corine Nieto RN
--- NOTE | 2018-04-15 09:48 | GDS ---
ALL DIAGNOSES: 1. Bladder tumor and left ureteral obstruction status post transurethral resection of bladder tumor with left ureteral stent placement. 2. Right ankle gout. 3. Right leg weakness due to spinal, as well as foraminal stenosis. 4. Coronary artery disease with no recent stent placements. 5. Atrial fibrillation. 6. Diabetes mellitus, type 2. 7. Chronic kidney disease. HOSPITAL COURSE: 83-year-old man who was initially admitted by Dr. Lema for a bladder tumor resect ion, as well as left ureteral stent placement. There were no perioperative complications; however, p ostoperatively, he had significant right leg weakness. Because of this, Neurosurgery was consulted, there were some abnormal MRI findings, including central canal, as well as foraminal stenosis at L2/3 . No intervention was recommended as he was improving. His course was further complicated by right ankle arthritis, which is likely gout. I have very low s uspicion for septic arthritis given the appearance, lack of fever, lack of white count. He improved markedly after 1 dose of prednisone. He was initially unable to ambulate due to the severe pain and swelling; however, he is now able to ambulate. He will be discharged with an additional 6 days of pr ednisone 20 mg. 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 He will follow up with him to see to consider preventative t herapy. DISPOSITION: Home with home care. He has been seen and cleared by PT today. FOLLOWUP: 1. Dr. Lema on Monday for removal of 3-way Cantor catheter. He does have some ongoing hematuria, thus we are holding his aspirin, which should be restarted as soon as his hematuria resolves. 2. [employer] for ongoing management of gout. 3. Dr. Rosado given his significant spinal stenosis for consideration of a procedure in the uture. BILLING: I spent more than 30 minutes on the day of discharge coordinating care. /[id number]/MODL
[2018-04-15] MEDS: FAMOTIDINE 20 MG TAB PO SCH (10:16)
[2018-04-15] MEDS: METOPROLOL TARTRATE 25 MG TAB PO SCH (10:16)
[2018-04-15] MEDS: INSULIN REGULAR HUMAN 100 UNIT/ML UNIT SC SCH (10:16)
[2018-04-15] MEDS: predniSONE 20 MG TAB PO SCH (10:17)
[2018-04-15] MEDS: TAMSULOSIN HCL 0.4 MG CAP PO SCH (10:17)
[2018-04-15] MEDS: ATORVASTATIN CALCIUM 10 MG TAB PO SCH (10:17)
--- NOTE | 2018-04-15 12:12 | ASMTCMCOM ---
CM Note CM Note Notes: Patient will discharge to home with [facility]. CM available should other needs arise. plan: Dc to home with C as above Date Signed: 04/15/2018 12:11 PM Electronically Signed By:Corine Nieto RN
--- NOTE | 2018-04-15 16:40 | PDMN ---
Medical Necessity Medical necessity: [facility] S970 TURP: 83 yo s/p TURP for bladder ca. Pt developed complications Post op pt w/ heaviness and weakness RLE, neurosurgery consulted and during hospitalization pt unable to ambulate or support weight on RLE. PT/ OT interventions required, MRI showed some abnormalities neurosurgery is following, Pt required additional MN for post op complications and diagnostic testing. Change to IP status 04/14/18@1538 per order
--- NOTE | 2018-04-17 08:57 | ASDISCHSUM ---
Discharge Information Plan Status:Home with Home Health Medically Cleared to Leave:04/14/2018 Discharge Date:04/15/2018 02:17 PM D/C Disposition:Home Health Service [facility] D/C Disposition:Home, Routine, Self-Care Projected Discharge Date:04/15/2018 11:00 AM Transportation at D/C: Discharge Delay Reason: Follow-Up Date:04/15/2018 11:00 AM Discharge Slot: Final Diagnosis: Placement Information Referral Type:*Home Health Care Services Referral ID:[id number] Provider Name:[email or web address] (formerly [facility]) [address] Address 2: City:[place] Selection Factors: State:[place] Patient Contact Information Contact Name:ROBERTORONNICINTHYA Relationship: Address:[address] Work Phone: City:[facility] Phone: State/Zip Code:[place] [address] Email: Financial Information Financial Class:Medicare [employer] Primary Plan Desc:[facility] [employer] Primary Plan Number:[id number] Secondary Plan Desc: Secondary Plan Number: Assessment Information LACE LACE Length of stay for Answers: 2 days current admission Comorbidities - select Answers: Any tumor (including all that apply lymphoma or leukemia) Cerebrovascular disease (CVA, TIA, aneurysms, vasc ular dementia) Coronary Artery Disease Diabetes (uncontrolled or controlled) Other Notes: HTN # of Emergency department Answers: 0 visits in the last 6 months Score: 9 Date Signed: 04/15/2018 09:39 AM Electronically Signed By:Corine Nieto RN [facility] CM Progress Note CM Note CM Note Notes: Chart and plan of care reviewed with Minoo RUTH. The patient is an 83 year old male s/p turp with history of chronic back pain who has developed increased pain s/p TURP in his leg. Per PT he is exhibiting significant weakness and the recommendation at this point is a SaNF vs home with 24 hour care and PT. Plan: TBD Date Signed: 04/13/2018 04:29 PM Electronically Signed By:Corine Nieto RN [facility] TIM Progress Note CM Note CM Note Notes: Spoke with pt regarding SNF vs homecare d/c. He was unable to work with PT today due to pain in his leg and foot which the MD thinks may be related to a gout flare. Pt did not want to make a d/c plan until he is able to work with PT again. He is the CG for his who uses a walker - currently his son is staying with her. We discussed possiblity of his going to the son's house until pt is either home from a SNF stay or stronger if he discharges with homecare. Pt will discuss with his son. CM will continue to follow for d/c needs. Date Signed: 04/14/2018 11:11 AM Electronically Signed By:SYDNEY Ledesma [facility] TIM Progress Note CM Note CM Note Notes: Patient has been medically cleared for discharge to home with [facility]. Patient is agreeable and address and phone confirmed, referrals sent via [employer] pending acceptance. Plan: Home with [facility] Date Signed: 04/15/2018 09:41 AM Electronically Signed By:Corine Nieto RN [facility] CM Progress Note CM Note CM Note Notes: Patient will discharge to home with [facility]. CM available should other needs arise. plan: Dc to home with [facility] as above Date Signed: 04/15/2018 12:11 PM Electronically Signed By:Corine Nieto RN Intervention Information Intervention Type:*IM-Signed Date of Service:04/15/2018 12:30 PM Patient Type:Observation Staff Member:FLORY Nieto Margaret Hours: Discipline: Severity: Comment:
== END 2018-04-15 14:17 | disposition home health service (06) | DRG 655 ==
LOC: INTOOBSV 13:23 → F1N 13:23 → OBSVTOIN 04-14 15:38
PROVIDERS: ADMIT Specialist; ATTEND Specialist
DX: C67.9 Malignant neoplasm of bladder, unspecified (principal); M10.9 Gout, unspecified; I25.10 Atherosclerotic heart disease of native coronary artery without angina pectoris; M48.061 Spinal stenosis, lumbar region without neurogenic claudication; I48.91 Unspecified atrial fibrillation; E10.43 Type 1 diabetes mellitus with diabetic autonomic (poly)neuropathy; I12.9 Hypertensive chronic kidney disease with stage 1 through stage 4 chronic kidney disease, or unspecified chronic kidney disease; N18.9 Chronic kidney disease, unspecified; N40.1 Benign prostatic hyperplasia with lower urinary tract symptoms; E78.5 Hyperlipidemia, unspecified; G47.33 Obstructive sleep apnea (adult) (pediatric); Z86.73 Personal history of transient ischemic attack (TIA), and cerebral infarction without residual deficits; Z95.1 Presence of aortocoronary bypass graft
CPT/HCPCS: 97116-GP; 97162-GP; 97165-GO; 97530-GP; C1758; C1769; C2625; G0378; G8978-GP-CK; G8979-GP-CI; G8987-GO-CJ; G8988-GO-CI; J1815; J1956; J2270; J2704; J3010; J7512; Q9967

== ENCOUNTER → 2018-07-11 | Outpatient (CLI) | payer OTHER | LOC: FIMAGING 11:10 | PROVIDERS: ATTEND Specialist | DX: N13.30 Unspecified hydronephrosis (principal) ==

== ENCOUNTER 2018-07-25 11:22 | Day surgery (SDC) | payer OTHER ==
[2018-07-25] MEDS ORDERED: FLUMAZENIL 0.5 MG/5 ML MDV IVP PRN (11:38)
[2018-07-25] MEDS ORDERED: fentaNYL 100 MCG/2 ML INJ IVP PRN (11:38)
[2018-07-25] MEDS ORDERED: MEPERIDINE 25 MG/ML SYR IVP PRN (11:38)
[2018-07-25] MEDS ORDERED: MIDAZOLAM 2 MG/2 ML VIAL IVP PRN (11:38)
[2018-07-25] MEDS ORDERED: NALOXONE HCL 0.4 MG/ML INJ IVP PRN (11:38)
[2018-07-25] MEDS ORDERED: NS 1,000 ML IV SCH (11:45)
[2018-07-25 12:51] LABS: INR 0.99 (0.83-1.16); PROTIME(PATIENT) 12.7 SEC (12.0-15.0)
[2018-07-25] MEDS ORDERED: FLUMAZENIL 0.5 MG/5 ML MDV IVP ONE (12:58)
[2018-07-25] MEDS ORDERED: fentaNYL 100 MCG/2 ML INJ ONE ×2 (12:58→14:28)
[2018-07-25] MEDS ORDERED: NALOXONE HCL 0.4 MG/ML INJ ONE (12:58)
[2018-07-25] MEDS ORDERED: MIDAZOLAM 2 MG/2 ML VIAL ONE ×2 (12:58→14:28)
[2018-07-25] MEDS ORDERED: D50W 25 GM/50 ML SYR IVP ONE (13:31)
--- NOTE | 2018-07-25 13:45 | PDRADPRE ---
Radiology History & Physical Indication for procedure: other (URETERAL STRICTURE) Home medications: Insulin Glargine [Lantus 100 UNITS/ML] 18 units SC HS 10/17/13 [Last Taken 1 Day Ago ~07/24/18] Metoprolol Tartrate [Lopressor 25 mg (*)] 12.5 mg PO BIDMEAL 10/17/13 [Last Taken 07/25/18] Tamsulosin HCl [Flomax 0.4 MG (*)] 0.4 mg PO DAILY 10/17/13 [Last Taken 07/25/18 ] Ranitidine HCl [Zantac] 150 mg PO BIDMEAL 11/15/16 [Last Taken 07/25/18] Simvastatin [Zocor] 20 mg PO HS 11/15/16 [Last Taken 1 Day Ago ~07/24/18] Insulin Lispro [humALOG LISPRO 100 units/ml (*)] 4 unit SC TIDMEAL 08/24/17 [ Last Taken 10/25/17] Timolol Maleate 1 drop EACHEYE DAILY 04/04/18 [Last Taken 07/25/18] Bromfenac Sodium [Prolensa] 1 drop RTEYE BID 04/14/18 [Last Taken 07/25/18] Insulin Lispro [HumaLOG LISPRO] 0 unit SQ PRN PRN 04/14/18 [Last Taken 07/25/18] Allergies/Adverse Reactions: No Known Allergies Allergy (Verified 07/25/18 12:23) Mental status: A&Ox3
--- NOTE | 2018-07-25 13:45 | PDPROPOC ---
Sedation Plan of Care ASA Classification: ASA 3 Mallampati Score: Class 2 Mallampati Reference Image:
[2018-07-25] MEDS ORDERED: LIDOCAINE 1% 300 MG/30 ML SDV ONE (13:47)
[2018-07-25] MEDS ORDERED: IOPAMIDOL (ISOVUE-300) 100 ML BTL ONE ×2 (13:47→13:49)
[2018-07-25] MEDS ORDERED: ACETAMINOPHEN 325 MG TAB PO PRN (15:14)
[2018-07-25] MEDS ORDERED: ONDANSETRON 4 MG/2 ML VIAL IVP PRN (15:14)
--- NOTE | 2018-07-25 15:14 | PDRADPN ---
Radiology Procedure Note Date of Procedure: 07/25/18 Radiologist: Daria Ballard Anesthesia: IV Sedation Pre-op Diagnosis: hydroureteronephrosis Post-op Diagnosis: same Procedure: left nephroureteral stent placement Inf/Abcess present in the surg proc area at time of surgery?: No
[2018-07-25] MEDS ORDERED: ACETAMINOPHEN 325 MG TAB ONE (16:09)
[2018-07-25 18:06] VITALS: BP 100/60
== END 2018-07-25 17:56 | disposition home or self-care (01) ==
LOC: FIMAGING 11:22
PROVIDERS: ATTEND Radiology Diagnostic Radiology
PROC: 0T773DZ Dilation of Left Ureter with Intraluminal Device, Percutaneous Approach (ICD-10-PCS; principal; 2018-07-25 16:20)
PROC: BT141ZZ Fluoroscopy of Kidneys, Ureters and Bladder using Low Osmolar Contrast (ICD-10-PCS; principal; 2018-07-25 16:20)
PROC: BT43ZZZ Ultrasonography of Bilateral Kidneys (ICD-10-PCS; principal; 2018-07-25 16:20)
DX: N13.1 Hydronephrosis with ureteral stricture, not elsewhere classified (principal)
CPT/HCPCS: 50433; 99152; 99153; C1729; C1769; 82947-QW; J0696; J2250; J2310; J3010; Q9967

== ENCOUNTER 2018-08-15 11:15 | Day surgery (SDC) | payer OTHER ==
[2018-08-15] MEDS ORDERED: MIDAZOLAM 2 MG/2 ML VIAL IVP PRN (11:29)
[2018-08-15] MEDS ORDERED: fentaNYL 100 MCG/2 ML INJ IVP PRN (11:29)
[2018-08-15] MEDS ORDERED: FLUMAZENIL 0.5 MG/5 ML MDV IVP PRN (11:29)
[2018-08-15] MEDS ORDERED: NALOXONE HCL 0.4 MG/ML INJ IVP PRN (11:29)
[2018-08-15] MEDS ORDERED: NS 1,000 ML IV SCH (11:30)
[2018-08-15 12:17] LABS: INR 1.02 (0.83-1.16)
[2018-08-15] MEDS ORDERED: LIDOCAINE 1% 300 MG/30 ML SDV ONE ×2 (12:28→13:48)
[2018-08-15] MEDS ORDERED: IOPAMIDOL (ISOVUE-300) 100 ML BTL ONE (12:28)
[2018-08-15] MEDS ORDERED: NALOXONE HCL 0.4 MG/ML INJ ONE (12:33)
[2018-08-15] MEDS ORDERED: FLUMAZENIL 0.5 MG/5 ML MDV IVP ONE (12:33)
[2018-08-15] MEDS ORDERED: fentaNYL 100 MCG/2 ML INJ ONE (12:34)
[2018-08-15] MEDS ORDERED: MIDAZOLAM 2 MG/2 ML VIAL ONE ×2 (12:34)
[2018-08-15] MEDS ORDERED: ACETAMINOPHEN 325 MG TAB PO PRN (13:32)
[2018-08-15] MEDS ORDERED: ONDANSETRON 4 MG/2 ML VIAL IVP PRN (13:32)
--- NOTE | 2018-08-15 13:32 | PDRADPN ---
Radiology Procedure Note Date of Procedure: 08/15/18 Radiologist: Daria Ballard Anesthesia: IV Sedation Pre-op Diagnosis: ureteral stricture Post-op Diagnosis: same Procedure: JJ stent placement Inf/Abcess present in the surg proc area at time of surgery?: No
[2018-08-15] MEDS ORDERED: IOPAMIDOL (ISOVUE-M 300) 15 ML VIAL ONE (13:49)
[2018-08-15] MEDS ORDERED: TRIAMCINOLONE ACETONIDE 200 MG/5 ML MDV IM ONE (13:50)
[2018-08-15 20:26] VITALS: BP 140/62
--- NOTE | 2018-08-17 06:31 | CPEKG ---
Test Reason : afib, variable heart rate 40's-90's, bigeminy Blood Pressure : / mmHG Vent. Rate : 096 BPM Atrial Rate : 082 BPM P-R Int : 238 ms QRS Dur : 106 ms QT Int : 384 ms P-R-T Axes : 011 -40 102 degrees QTc Int : 486 ms Sinus rhythm Paired ventricular premature complexes Prolonged MT interval Left anterior fasicualr block Confirmed by Feliz Ortiz ([id number]) on 08/17/2018 6:30:57 AM Referred By: Lynn Lema Confirmed By:Feliz Ortiz
== END 2018-08-15 15:20 | disposition home or self-care (01) ==
LOC: FIMAGING 11:15
PROVIDERS: ATTEND Radiology Diagnostic Radiology
PROC: BT1F1ZZ Fluoroscopy of Left Kidney, Ureter and Bladder using Low Osmolar Contrast (ICD-10-PCS; principal; 2018-08-15 13:45)
PROC: 0T777DZ Dilation of Left Ureter with Intraluminal Device, Via Natural or Artificial Opening (ICD-10-PCS; principal; 2018-08-15 13:45)
DX: N13.5 Crossing vessel and stricture of ureter without hydronephrosis (principal)
CPT/HCPCS: 50693; 93005; 99152; C1729; C1769; 82947-QW; J1644; J2250; J2310; J3010; J3301; Q9967